=== PATIENT | female | born 1965 | race Caucasian/White ===

== ENCOUNTER 2017-12-25 20:01 | Emergency (ER) | payer MEDICARE ==
[~2017-12-25] VITALS: Ht 165.1 cm; Wt 90.7 kg
[~2017-12-25 20:01] MED LIST: COPAXONE20 MG/SYR PO; EC-NAPROSYN500 M1 PO; FLEXERIL PO; IBUPROFEN 200200 M1 PO; LASIX 20 MG TAB20 MG PO; MEDROLDOSEPACK PO; NEURONTIN300 MG PO; PRILOSEC 20 MG20 MG PO; TRAZODONE HCL100 MG PO; TYLENOL P.M. E1 EAC3 PO; TYLENOL PM EX-1 EACH PO; VALIUM5 MG PO; VITAMIN D400 UNI1 PO; ZOLOFT 50 MG TA50 M1 PO
[2017-12-25] MEDS ORDERED: LISINOPRIL10 MG PO (20:27)
[2017-12-25] MEDS ORDERED: IBU800 MG PO (22:02)
[2017-12-25 22:11] VITALS: BP 154/81
== END 2017-12-25 22:12 | disposition home or self-care (01) ==
LOC: M.ERS 20:01
DX: S62.101A Fracture of unspecified carpal bone, right wrist, initial encounter for closed fracture (principal); G35 Multiple sclerosis; F17.200 Nicotine dependence, unspecified, uncomplicated; Z88.5 Allergy status to narcotic agent; W01.0XXA Fall on same level from slipping, tripping and stumbling without subsequent striking against object, initial encounter; Y93.89 Activity, other specified; Y92.89 Other specified places as the place of occurrence of the external cause; Y99.8 Other external cause status

== ENCOUNTER → 2018-03-15 | Outpatient (CLI) | payer MEDICARE ==
[~2018-03-15] MED LIST changes: +IBU800 MG PO; +LISINOPRIL10 MG PO; +PROAIR HFA8.5 GM INH; +PROMETHAZINE V473 ML PO; +TESSALON PERLE100 MG PO
== END ==
LOC: M.RAD 11:05
DX: J34.89 Other specified disorders of nose and nasal sinuses (principal); F10.99 Alcohol use, unspecified with unspecified alcohol-induced disorder

== ENCOUNTER → 2018-03-30 | Outpatient (CLI) | payer MEDICARE | LOC: M.RAD 09:42 | DX: Z12.31 Encounter for screening mammogram for malignant neoplasm of breast (principal); J34.89 Other specified disorders of nose and nasal sinuses; R05 Cough; G35 Multiple sclerosis; F10.99 Alcohol use, unspecified with unspecified alcohol-induced disorder ==

== ENCOUNTER 2018-06-28 13:41 | Emergency (ER) | payer MEDICARE ==
[~2018-06-28] VITALS: Ht 157.5 cm; Wt 90.7 kg
[~2018-06-28 13:41] MED LIST changes: -PROAIR HFA8.5 GM INH; -PROMETHAZINE V473 ML PO; -TESSALON PERLE100 MG PO
[2018-06-28 14:37] LABS: ABSOLUTE BASOPHILS 0.1 thou/uL (0.0-0.2); ABSOLUTE EOSINOPHILS 0.1 thou/uL (0.0-0.7); ABSOLUTE LYMPHOCYTES 1.7 thou/uL (0.8-5.3); ABSOLUTE MONOCYTES 0.5 thou/uL (0.0-1.2); ABSOLUTE NEUTROPHILS 2.8 thou/uL (1.6-8.1); BASOPHILS 1.4 %; EOSINOPHILS 2.3 %; HEMATOCRIT 38.9 % (37.0-47.0); HEMOGLOBIN 12.8 gm/dL (12.0-15.0); LYMPHOCYTES 33.4 %; MCH 30.6 pg (26.0-34.0); MCHC 32.8 g/dL (28.0-37.0); MCV 93.2 fL (80.0-100.0); MONOCYTES 9.9 %; MPV 8.3 fl. (7.2-11.1); NUCLEATED RBCS 0 /100WBC; PLATELET COUNT* 253 thou/uL (150-400); RBC 4.17 mil/uL (4.20-5.00); RDW-CV 17.1 % (10.5-14.5); WBC 5.2 thou/uL (4.0-11.0)
[2018-06-28 14:52] LABS: ANION GAP 11 mmol/L (7-16); BUN 7 mg/dL (7-18); CALCIUM 9.2 mg/dL (8.5-10.1); CHLORIDE 101 mmol/L (98-107); CO2 24 mmol/L (21-32); CREATININE 0.8 mg/dL (0.6-1.3); GLUCOSE 150 mg/dL (70-99); POTASSIUM 3.9 mmol/L (3.5-5.1); SODIUM 136 mmol/L (136-145)
[2018-06-28 14:59] LABS: ALBUMIN 3.3 g/dL (3.4-5.0); ALKALINE PHOSPHATASE 94 U/L (46-116); SGOT 43 U/L (15-37); SGPT 45 U/L (30-65); TOTAL BILIRUBIN 0.2 mg/dL (<0.1-1.0); TOTAL PROTEIN 7.2 g/dL (6.4-8.2); TROPONIN-I LEVEL <0.06 ng/mL (<0.06)
[2018-06-28 15:15] LABS: URINE BILIRUBIN NEGATIVE (Negative); URINE BLOOD NEGATIVE (Negative); URINE CLARITY CLEAR; URINE COLOR YELLOW; URINE GLUCOSE-RANDOM NEGATIVE (Negative); URINE KETONES NEGATIVE (Negative); URINE LEUKOCYTES-REFLEX NEGATIVE (Negative); URINE NITRITE-REFLEX NEGATIVE (Negative); URINE PROTEIN NEGATIVE (Negative); URINE SPECIFIC GRAVITY >= 1.030 (1.005-1.030); URINE UROBILINOGEN 0.2 E.U./dl (0.2-1.0)
[2018-06-28] MEDS ORDERED: PROAIR HFA8.5 GM INH (15:15)
[2018-06-28] MEDS ORDERED: PROMETHAZINE V473 ML PO (15:15)
[2018-06-28] MEDS ORDERED: TESSALON PERLE100 MG PO (15:15)
[2018-06-28 15:22] VITALS: BP 163/85
== END 2018-06-28 15:23 | disposition home or self-care (01) ==
LOC: M.ERS 13:41
PROVIDERS: Physician Assistant
DX: J18.9 Pneumonia, unspecified organism (principal); G35 Multiple sclerosis; Z90.711 Acquired absence of uterus with remaining cervical stump; Z88.6 Allergy status to analgesic agent

== ENCOUNTER 2019-06-16 02:53 | Inpatient (IN) | payer MEDICARE ==
[~2019-06-16] VITALS: Ht 162.6 cm; Wt 93.0 kg
[~2019-06-16 02:53] MED LIST changes: +ASPIRIN325 PO; +GABAPENTIN 100100 MG PO; +GLATIRAMER20 MG/1 ML SUBQ; +LISINOPRIL20 MG PO; +PROAIR HFA8.5 GM INH; +PROMETHAZINE V473 ML PO; +TESSALON PERLE100 MG PO; +TRAZODONE 150150 M1 PO
[2019-06-16 02:59] VITALS: BP 148/67
[2019-06-16 04:04] LABS: ABSOLUTE EOSINOPHILS 0.2 thou/uL (0.0-0.7); ABSOLUTE LYMPHOCYTES 2.6 thou/uL (0.8-5.3); ABSOLUTE MONOCYTES 0.8 thou/uL (0.0-1.2); ABSOLUTE NEUTROPHILS 2.3 thou/uL (1.6-8.1); BASOPHILS 0.3 %; HEMATOCRIT 37.5 % (37.0-47.0); HEMOGLOBIN 12.2 gm/dL (12.0-15.0); LYMPHOCYTES 43.3 %; MCH 27.3 pg (26.0-34.0); MCHC 32.6 g/dL (28.0-37.0); MCV 83.8 fL (80.0-100.0); MONOCYTES 13.6 %; MPV 8.6 fl. (7.2-11.1); NUCLEATED RBCS 0 /100WBC; PLATELET COUNT* 173 thou/uL (150-400); POLYS 38.8 %; RBC 4.48 mil/uL (4.20-5.00); RDW-CV 16.6 % (10.5-14.5)
[2019-06-16 04:13] LABS: CALCIUM 9.5 mg/dL (8.5-10.1); CREATININE 0.6 mg/dL (0.6-1.3); POTASSIUM 4.1 mmol/L (3.5-5.1)
[2019-06-16 04:17] LABS: ALBUMIN 3.3 g/dL (3.4-5.0); MAGNESIUM 1.9 mg/dL (1.8-2.4); TOTAL BILIRUBIN 0.1 mg/dL (<0.1-1.0); TOTAL PROTEIN 7.6 g/dL (6.4-8.2)
[2019-06-16 05:19] VITALS: BP 117/69
[2019-06-16 05:30] VITALS: BP 116/64
--- NOTE | 2019-06-16 05:30 | NUR ---
PT ADMITTED TO FLOOR PER CART ACCOMPANIED BY ER STAFF WITH BELONGINGS. ORIENTED TO ROOM AND CALL LITE. HISTORY OBTAINED AND ASSESMENT PERFORMED, SEE ADMIT NOTES. PT WEAK, UP WITH 2 ASSIST, GB FROM CART TO BSC TO VOID-URINE SAMPLE SENT TO LAB. ASSISTED TO BED AND POSITIONED FOR COMFORT. AOX4, CALM COOPERATIVE. PT DENIES PAIN AT PRESENT, REQUESTING SNACK AND WOULD LIKE TO SLEEP. NO WOUNDS NOTED. VSS, ROOM AIR SAT 96%. SNACK GIVEN, CALL LITE IN EASY REACH, BED ALARM ON FOR SAFETY. WILL CONTINUE TO MONITOR AND PROVIDE CARES NEEDED.
[2019-06-16 06:17] LABS: URINE BILIRUBIN NEGATIVE (Negative); URINE BLOOD NEGATIVE (Negative); URINE CLARITY CLEAR; URINE COLOR YELLOW; URINE GLUCOSE-RANDOM NEGATIVE (Negative); URINE KETONES NEGATIVE (Negative); URINE LEUKOCYTES-REFLEX NEGATIVE (Negative); URINE NITRITE-REFLEX NEGATIVE (Negative); URINE PROTEIN NEGATIVE (Negative); URINE SPECIFIC GRAVITY <= 1.005 (1.005-1.030); URINE UROBILINOGEN 0.2 E.U./dl (0.2-1.0)
[2019-06-16 06:25] LABS: AMP/METHAMP Negative (Negative); BARBITURATES Negative (Negative); BENZODIAZEPINES POSITIVE (Negative); COCAINE Negative (Negative); METHADONE Negative (Negative); OPIATES Negative (Negative); PCP Negative (Negative); THC Negative (Negative)
[2019-06-16 08:40] VITALS: BP 137/64
[2019-06-16 15:30] VITALS: BP 151/72
[2019-06-16 20:30] VITALS: BP 159/81
--- NOTE | 2019-06-16 20:38 | NUR ---
PATIENT REMAINED ALERT AND ORIENTED THROUGHOUT SHIFT. PATIENT ASSISTED TO BEDSIDE COMMODE. PATIENT DECLINED GAIT BELT. EDUCATION PROVIDED MULTIPLES TIMES THROUGHOUT SHIFT ON FALL PRECAUTIONS. ALL OTHER SAFETY MEASURES MAINTAINED. PATIENT REQUESTED TRAZADONE FOR SLEEP. DR. MELCHOR NOTIFIED. NEW ORDER RECEIVED AND VERIFIED WITH READ BACK.
[2019-06-16] MEDS ORDERED: OMEPRAZOLE40 MG PO (20:57)
--- NOTE | 2019-06-17 05:16 | NUR ---
PATIENT SLEPT VERY LITTLE THIS SHIFT EVEN AFTER TRAZADONE WAS GIVEN FOR SLEEP. NEW IV WAS STARTED CHARTED AND REMAINS SALINE LOCKED. PATIENT HAS BEEN IMPULSIVE AND RESTLESS MOST OF THE NIGHT. TYLENOL AND TRAMADOL WERE GIVEN FOR PAIN NEEDED. WILL CONTINUE TO MONITOR.
--- NOTE | 2019-06-17 10:26 | NUR ---
SW met with pt to complete initial assessment, introduce self, and SW role. Pt alert, oriented. Pt was not pleasant in meeting with SW, pt said "I don't need anything...so you can be along your merry way...." Pt lives at home, presumably independent and has a significant other listed as Jose Campos. Pt refused to discuss any possible needs any further and again attested that she did not need SW/CM services or anything.
[2019-06-17 10:30] VITALS: BP 138/81
[2019-06-17 16:00] VITALS: BP 148/85
[2019-06-17 19:30] VITALS: BP 145/75
--- NOTE | 2019-06-17 20:07 | NUR ---
Patient remained alert and oriented throughout shift. Patient declined gait belt and walker. Bed alarm on while patient in bed. Patient ambulating with stand by assistance. Education provided throughout day on safety measures and fall precautions. Patient declined IV this morning after IV infiltrated. Patient decided to have IV placed this afternoon. IV placed by [facility] in infusion. Dr. Fuchs notified. Patient declined MRI. Dr. Peters notified.
--- NOTE | 2019-06-17 22:45 | NUR ---
THIS NURSE SPOKE WITH PT; PT ANXIOUS, PACING DUNCAN, ESCLATING; PT STATING " NO ONE WILL BELIEVE ME"; TEARFUL, WALKING DOWN THE DUNCAN STATING "I'M LEAVING", ATTEMPTED TO REDIRECT PT; PT PLACED HANDS ON SECURITY; PT PARANOID, DELUSIONSAL, REFUSING TO ANSWER QUESTIONS; "YOU DON'T BELIEVE ME"; ATTEMPTED TO CONTACT NO ANSWER; PT HYSTERCIAL SAYING HE'S ; CONTACTED [facility] FOR WELLNESS CHECK; ABLE TO CONTACT NEXT OF KIN SON JACKIE MCFADDEN; SON VERIFIED CONCERNS FOR HIS MOTHER'S WELLBEING AND DO NOT LEFT HER GO; REPORTED THAT SHE HAS A HX OF ETOH AND DETOX; SON REPORTED ON HIS WAY TO THE HOSPITAL PT TRANSFERING TO TELE PER JUAN LUIS CAIN
[2019-06-17 23:30] VITALS: BP 135/67
--- NOTE | 2019-06-17 23:35 | NUR ---
AT 0 PT ASK TO USE NURSE CELL PHONE CALL S/O INFORMED PT THAT WE COULD CALL IN THE ROOM THE PHONE, EYELET CUTTER CALLED MARKETING ASSISTANT [employer] DIVISION TO CALL S/O WHICH IS AREA CODE 573 , NO ANSWER, PT THEN BACAME AGITATED AND DEMANDED TO USE STAFF PERSONAL PHONE , PT THEN ALSO GOT OUT OF BED AND STARTED WALKING HALLWAYS AND ENDED UP IN PHYSICAL THERPAY ROOM AND REFUSED TO LEAVE. EYELET CUTTER THEN PLACED CALL TO NURSING DRAWING SUPERVISOR AND SECURITY , TO ASISST PT BACK TO ROOM .PT REQUESTED IV TO BE TAKEN OUT AND STATED THAT SHE WAS GOING TO LEAVE HOSPITAL.CALLED PLACED TO DR Ashleigh VALDES WHO IS OPTION TRADER FOR DUTCH, INFORM DOCTOR OF SITUATION. PT VERY IRRATIONAL AND EMOTIIONAL AT THIS POINT AND IS UNSAFE TO LEAVE HOSPTIAL AMA. NURSING DRAWING SUPERVISOR CONTACTED SON JACKIE THAT CAME TO HOSPITAL AND STATES PT HAVE LONG HISTORY OF ETOH ABUSED AND THIS HER BEHAVIOR WHEN SHE IS GOING THROUGH WITHDRAWAL. DOCTOR CALLED BACKED AND I INFORMED HER , CIWA PROTOCOL STARTED AFTER ONE TIME DOSE OF IM ATIVAN GIVEN THEN PT TRANSFERRED TO TELEM VIA BED.
[2019-06-18 04:04] VITALS: BP 151/72
--- NOTE | 2019-06-18 05:59 | NUR ---
REPORT RECIEVED FROM VINAY MOTTA. PT TRANSFERED TO ROOM 228 VIA BED. PT DISORIENTED TO SITUATION. PT SPEAKING IN A BELGIAN, SOUTHERN, SERBIAN, AND MALTESE ACCENT, GETTING UPSET WITH STAFF AT TIMES WHEN THEY WERE NOT SPEAKING IN THE SAME ACCENT. NEW IV STARTED. NO REPORTS OF PAIN. PT VERY UNSTEADY, NEEDING ASSIST OF 2 WHEN AMBULATING. SITTER REMAINED IN ROOM. CIWA COMPLETED. TELE MONITOR IN PLACE. FALL PRECAUTIONS IN PLACE. WILL CONTINUE WITH PLAN OF CARE.
[2019-06-18 12:49] VITALS: BP 160/71
[2019-06-18 16:55] VITALS: BP 176/65
--- NOTE | 2019-06-18 17:56 | NUR ---
PATINET RESTING IN BED. 1:[address] VSS STABLE AND PATINET IN NO APPARENT DISTRESS. PATIENT HAS LARGGE AND FREQUENT MOOD SWINGS. HOURLY ROUNIDNG COMPLETED FOR PATIENT SAFETY.
[2019-06-18 20:15] VITALS: BP 152/78
[2019-06-19] VITALS: BP 159/69
[2019-06-19 04:00] VITALS: BP 131/60; BP 132/59
[2019-06-19 04:32] LABS: HEMATOCRIT 28.7 % (37.0-47.0); HEMOGLOBIN 9.6 gm/dL (12.0-15.0); MCH 27.3 pg (26.0-34.0); MCHC 33.7 g/dL (28.0-37.0); MCV 81.2 fL (80.0-100.0); MPV 8.1 fl. (7.2-11.1); RBC 3.53 mil/uL (4.20-5.00); RDW-CV 16.2 % (10.5-14.5); WBC 5.9 thou/uL (4.0-11.0)
[2019-06-19 04:58] LABS: ALBUMIN 2.8 g/dL (3.4-5.0); CALCIUM 8.8 mg/dL (8.5-10.1); CREATININE 0.7 mg/dL (0.6-1.3); MAGNESIUM 1.8 mg/dL (1.8-2.4); POTASSIUM 3.9 mmol/L (3.5-5.1); TOTAL BILIRUBIN 0.2 mg/dL (<0.1-1.0); TOTAL PROTEIN 6.2 g/dL (6.4-8.2)
--- NOTE | 2019-06-19 05:47 | NUR ---
PT SLEPT MOST OF SHIFT. ASSESSMENT DOUCMENTED. MEDS GIVEN PER E-MAR. IV PATENT, FLUIDS INFUSING. PAIN MEDS GIVEN PER E-MAR. PTS MOOD CHANGES FREQUENTLY. SITTER REMAINED AT BEDSIDE. SON ASKED TO HAVE DR. DENISE CALL AND TALK WITH HIM WHEN SHE ROUNDS TODAY. WILL CONTINUE WITH PLAN OF CARE.
[2019-06-19] MEDS ORDERED: LEVAQUIN 500 M500 M3 PO (10:31)
[2019-06-19 11:46] VITALS: BP 150/73
[2019-06-19 13:29] VITALS: BP 150/73
--- NOTE | 2019-06-19 15:52 | NUR ---
ORDER RECEIVED TO DISCHARGE PATIENT HOME TO SELF CARE. MED REC, MEDICATION EDUCATION, STROKE EDUCATION, NEED FOR FOLLOW UP APPOINTMNET WITH DR AKINS, AND NEED FOR VOLUNTARY ADMISSION TO A REHAB FACILITY COVERED WITH PATIENT AND SHE ACKNOWLEDGED THESE INSTRUCTION. SHE WAS GIVEN ADEQUATE TIME TO HAVE ANY AND ALL QUESTIONS ANSWERED. IV AND TELEMETRY PACK REMOVED. HER SIGNIFICANT OTHER ARRIVED TO TRANSPORT HER HOME AND SECURITY RETURNED HER BELONGINGS. DC TIME OF 15:35. HOURLY ROUNDING COMPLETED FOR PATIENT SAFETY
[2019-06-19] MEDS ORDERED: TRAZODONE 150150 M1 PO (22:15)
[2019-06-19] MEDS ORDERED: NEURONTIN 300M300 M2 PO (22:16)
[2019-06-21] MEDS ORDERED: TAPAZOLE10 MG PO (21:44)
[2019-06-28] MEDS ORDERED: NEURONTIN 300300 M1 PO (12:44)
[2019-06-28] MEDS ORDERED: TRAZODONE 150150 M1 PO (12:45)
[2019-06-28] MEDS ORDERED: ZOLOFT100 MG PO (12:45)
[2019-06-28] MEDS ORDERED: VITAMIN D5000 UNIT PO (12:47)
[2019-06-28] MEDS ORDERED: FOLIC ACID1 MG PO (12:47)
== END 2019-06-19 16:10 | disposition home or self-care (01) | DRG 58 ==
LOC: M.ERS 02:53 → M.3W 04:56 → M.TBA-ER 04:56 → M.3W 05:18 → M.2W 06-18 00:25
PROVIDERS: Internal Medicine; Personal Emergency Response Attendant; ADMIT Internal Medicine
DX: G35 Multiple sclerosis (principal); J15.6 Pneumonia due to other Gram-negative bacteria; J98.11 Atelectasis; E44.1 Mild protein-calorie malnutrition; F17.210 Nicotine dependence, cigarettes, uncomplicated; J06.9 Acute upper respiratory infection, unspecified; D64.9 Anemia, unspecified; I10 Essential (primary) hypertension; E66.01 Morbid (severe) obesity due to excess calories; F10.10 Alcohol abuse, uncomplicated; Z88.5 Allergy status to narcotic agent; Z79.82 Long term (current) use of aspirin; Z79.899 Other long term (current) drug therapy; Z82.49 Family history of ischemic heart disease and other diseases of the circulatory system; Z68.35 Body mass index [BMI] 35.0-35.9, adult

== ENCOUNTER 2019-06-19 21:58 | Emergency (ER) | payer MEDICARE ==
[~2019-06-19] VITALS: Ht 162.6 cm; Wt 93.0 kg
[~2019-06-19 21:58] MED LIST changes: +LEVAQUIN 500 M500 M3 PO; +OMEPRAZOLE40 MG PO
[2019-06-19] MEDS ORDERED: TRAZODONE 150150 M1 PO (22:15)
[2019-06-19] MEDS ORDERED: NEURONTIN 300M300 M2 PO (22:16)
[2019-06-19 22:25] LABS: HEMATOCRIT 37.2 % (37.0-47.0); HEMOGLOBIN 12.3 gm/dL (12.0-15.0); MCH 27.2 pg (26.0-34.0); MCV 82.7 fL (80.0-100.0); MPV 8.2 fl. (7.2-11.1); RBC 4.5 mil/uL (4.20-5.00); RDW-CV 16.4 % (10.5-14.5); WBC 8.3 thou/uL (4.0-11.0)
[2019-06-19 22:38] LABS: URINE BILIRUBIN NEGATIVE (Negative); URINE BLOOD NEGATIVE (Negative); URINE CLARITY CLEAR; URINE COLOR YELLOW; URINE GLUCOSE-RANDOM NEGATIVE (Negative); URINE KETONES NEGATIVE (Negative); URINE LEUKOCYTES NEGATIVE (Negative); URINE NITRITE NEGATIVE (Negative); URINE PROTEIN NEGATIVE (Negative); URINE SPECIFIC GRAVITY 1.015 (1.005-1.030); URINE UROBILINOGEN 0.2 E.U./dl (0.2-1.0)
[2019-06-19 22:42] LABS: CALCIUM 9.9 mg/dL (8.5-10.1); CREATININE 0.7 mg/dL (0.6-1.3); POTASSIUM 4.3 mmol/L (3.5-5.1)
[2019-06-19 22:47] LABS: ALBUMIN 3.5 g/dL (3.4-5.0); TOTAL BILIRUBIN 0.3 mg/dL (<0.1-1.0); TOTAL PROTEIN 7.7 g/dL (6.4-8.2)
[2019-06-19 22:49] LABS: ALCOHOL < 10 mg/dL (<10); SALICYLATE < 2.8 mg/dL (2.8-20.0)
[2019-06-19 22:53] LABS: ACETAMINOPHEN < 2 ug/mL (10-30)
[2019-06-19 22:56] LABS: AMP/METHAMP Negative (Negative); BARBITURATES Negative (Negative); BENZODIAZEPINES Negative (Negative); COCAINE Negative (Negative); METHADONE Negative (Negative); OPIATES Negative (Negative); PCP Negative (Negative); THC Negative (Negative)
[2019-06-20 14:15] VITALS: BP 166/80
--- NOTE | 2019-06-20 15:14 | EKG ---
[place] [address] ELECTROCARDIOGRAM REPORT Name: [id number] Admission: 06/19/19 Attend Phys: Discharge: 06/20/19 Date of : 61 Report #: [id number] THIS REPORT FOR: //name// [facility] ED Test Date: 2019-06-19 Test Time: 22:07:58 Pat Name: [facility] Department: Room: Gender: F Golf Starter And Ranger: MARIA G : 1965 Requested By: Ella Mcclure Order Number: [id number] MD: Gilmar Alfred Measurements Intervals [place] Rate: 96 P: 59 RI: 149 QRS: 38 QRSD: 103 T: 46 QT: 361 QTc: 457 Interpretive Statements Sinus rhythm Abnormal R-wave progression, early transition artifact noted Electronically Signed On 06-20-2019 15:13:56 PHOTOGRAPHER'S MODEL by Gilmar Alfred [email or web address] <ELECTRONICALLY SIGNED> By: Gilmar Alfred MD, [facility] 06/20/19 1513 [id number] 06 Gilmar Alfred MD, FACC /EPI
[2019-06-21] MEDS ORDERED: TAPAZOLE10 MG PO (21:44)
[2019-06-28] MEDS ORDERED: NEURONTIN 300300 M1 PO (12:44)
[2019-06-28] MEDS ORDERED: TRAZODONE 150150 M1 PO (12:45)
[2019-06-28] MEDS ORDERED: ZOLOFT100 MG PO (12:45)
[2019-06-28] MEDS ORDERED: VITAMIN D5000 UNIT PO (12:47)
[2019-06-28] MEDS ORDERED: FOLIC ACID1 MG PO (12:47)
== END 2019-06-20 14:15 ==
LOC: M.ERS 21:58
PROVIDERS: Personal Emergency Response Attendant
DX: F23 Brief psychotic disorder (principal); R45.851 Suicidal ideations; G35 Multiple sclerosis; F17.210 Nicotine dependence, cigarettes, uncomplicated; Z90.710 Acquired absence of both cervix and uterus; Z98.890 Other specified postprocedural states; Z88.5 Allergy status to narcotic agent

== ENCOUNTER 2019-10-23 16:16 | Inpatient (IN) | payer MEDICARE ==
[~2019-10-23] VITALS: Ht 162.6 cm; Wt 101.2 kg
[~2019-10-23 16:16] MED LIST changes: +FOLIC ACID1 MG PO; +NEURONTIN 300300 M1 PO; +NEURONTIN 300M300 M2 PO; +TAPAZOLE10 MG PO; +VITAMIN D5000 UNIT PO; +ZOLOFT100 MG PO
[2019-10-23 16:23] VITALS: BP 144/70
[2019-10-23 16:59] LABS: ABSOLUTE BASOPHILS 0.1 thou/uL (0.0-0.2); ABSOLUTE EOSINOPHILS 0.1 thou/uL (0.0-0.7); ABSOLUTE LYMPHOCYTES 1.9 thou/uL (0.8-5.3); ABSOLUTE MONOCYTES 0.4 thou/uL (0.0-1.2); ABSOLUTE NEUTROPHILS 3.3 thou/uL (1.6-8.1); BASOPHILS 1.6 %; EOSINOPHILS 1.8 %; HEMATOCRIT 37.6 % (37.0-47.0); HEMOGLOBIN 12.9 gm/dL (12.0-15.0); LYMPHOCYTES 33.5 %; MCH 31.8 pg (26.0-34.0); MCHC 34.4 g/dL (28.0-37.0); MCV 92.5 fL (80.0-100.0); MONOCYTES 6.4 %; MPV 7.3 fl. (7.2-11.1); NUCLEATED RBCS 0 /100WBC; PLATELET COUNT* 178 thou/uL (150-400); POLYS 56.7 %; RBC 4.07 mil/uL (4.20-5.00); WBC 5.8 thou/uL (4.0-11.0)
[2019-10-23 17:09] LABS: INR 1.1; PROTIME 11.3 Seconds (9.20-11.50)
[2019-10-23 17:15] LABS: CALCIUM 8.4 mg/dL (8.5-10.1); POTASSIUM 4.2 mmol/L (3.5-5.1)
[2019-10-23 17:20] LABS: ACETAMINOPHEN < 2 ug/mL (10-30); ALCOHOL < 10 mg/dL (<10); SALICYLATE 5.6 mg/dL (2.8-20.0)
[2019-10-23 17:26] LABS: ALBUMIN 3.9 g/dL (3.4-5.0); TOTAL BILIRUBIN 0.5 mg/dL (<0.1-1.0); TOTAL PROTEIN 7.6 g/dL (6.4-8.2)
[2019-10-23 17:27] LABS: URINE BILIRUBIN NEGATIVE (Negative); URINE BLOOD NEGATIVE (Negative); URINE CLARITY CLEAR; URINE COLOR YELLOW; URINE GLUCOSE-RANDOM NEGATIVE (Negative); URINE KETONES NEGATIVE (Negative); URINE LEUKOCYTES-REFLEX NEGATIVE (Negative); URINE NITRITE-REFLEX NEGATIVE (Negative); URINE PROTEIN NEGATIVE (Negative); URINE UROBILINOGEN 0.2 E.U./dl (0.2-1.0)
[2019-10-23 17:35] LABS: AMP/METHAMP Negative (Negative); BARBITURATES Negative (Negative); BENZODIAZEPINES Negative (Negative); COCAINE Negative (Negative); METHADONE Negative (Negative); OPIATES Negative (Negative); PCP Negative (Negative); THC Negative (Negative)
[2019-10-23 20:10] VITALS: BP 116/65
[2019-10-23 20:15] VITALS: BP 109/66
[2019-10-24] VITALS: BP 118/61
[2019-10-24 04:00] VITALS: BP 122/68
[2019-10-24 08:00] VITALS: BP 146/80
--- NOTE | 2019-10-24 08:36 | NUR ---
REPORT RECIEVED FROM ER. PT ORIENTED TO ROOM, CALL LIGHT SHOWN, FALL AGREEMENT WENT OVER, PT STATED UNDERSTANDING. ADMISSION DOCUMENTED. MEDS GIVEN PER E-MAR. IV PATENT, FLUIDS INFUSING. PT REPORTS PAIN BUT DOES NOT REQUEST PAIN MEDICATIONS. WILL CONTINUE WITH PLAN OF CARE.
--- NOTE | 2019-10-24 09:12 | EKG ---
[place] [address] ELECTROCARDIOGRAM REPORT Name: [facility] Room: [address] ADM IN M.R.#: [id number] Admission: 10/23/19 Attend Phys: Karol Hayes, Discharge: Date of : 61 Date of Service: 10/23/19 1645 Report #: [id number] THIS REPORT FOR: //name// [facility] ED Test Date: 2019-10-23 Test Time: 16:45:36 Pat Name: [facility] Department: Room: [facility] Gender: F Jackscrew Man: USMAN : 1965 Requested By: Marvin Feng Order Number: [id number] MD: Gilmar Alfred Measurements Intervals [place] Rate: 66 P: 133 WI: 131 QRS: 133 QRSD: 100 T: 77 QT: 422 QTc: 443 Interpretive Statements Right and left arm electrode reversal, interpretation assumes no reversal Sinus rhythm Right axis deviation Low voltage, precordial leads Nonspecific T abnormalities, anterior leads Baseline wander in lead(s) V1 Compared to ECG 06/19/2019 22:07:58 Right-axis deviation now present Low QRS voltage now present T-wave abnormality now present Electronically Signed On 10-24-2019 9:10:53 CDT by Gilmar Alfred [email or web address] <ELECTRONICALLY SIGNED> By: Gilmar Alfred MD, [facility] 10/24/19 0910 1645 Gilmar Alfred MD, [facility] /EPI
[2019-10-24 11:31] LABS: ABSOLUTE EOSINOPHILS 0.1 thou/uL (0.0-0.7); ABSOLUTE LYMPHOCYTES 1.9 thou/uL (0.8-5.3); ABSOLUTE MONOCYTES 0.4 thou/uL (0.0-1.2); ABSOLUTE NEUTROPHILS 3.8 thou/uL (1.6-8.1); BASOPHILS 0.7 %; EOSINOPHILS 2.3 %; HEMATOCRIT 32.1 % (37.0-47.0); LYMPHOCYTES 30.7 %; MCH 32.2 pg (26.0-34.0); MCHC 34.1 g/dL (28.0-37.0); MCV 94.3 fL (80.0-100.0); MONOCYTES 6.2 %; NUCLEATED RBCS 0 /100WBC; PLATELET COUNT* 141 thou/uL (150-400); POLYS 60.1 %; RDW-CV 20.9 % (10.5-14.5); WBC 6.3 thou/uL (4.0-11.0)
[2019-10-24 12:08] VITALS: BP 118/70
--- NOTE | 2019-10-24 15:21 | NUR ---
ASSUMED CARE OF PT AT 0730. PT RESTING IN BED. A&0X4, COMPLAINED OF PAIN TO BILATERAL LE'S-TREATED WITH PRN TRAMADOL WITH PARTIAL RELIEF. TRACING SR ON THE INCOME TAX RETURN PREPARER. ON RA SAT UPPER 90'S. PT DENIES ANY SHORTNESS OF BREATH. PT UP WITH 1 ASSIST TO BATHROOM. CIWA CHARTED. NEURO CONSULT IN PLACE. PER DR MAURICE- ORDER MRI IF PT WILLING. PT AGREEABLE TO MRI IF ABLE TO BE PRE MEDICATED PRIOR. DR BELTRAN NOTIFIED. ORDERS RECEIVED. REFER TO EMAR. PT GOAL FOR TODAY IS WORK WITH PT AND OT, INCREASE ACTIVITY, MAINTAIN CIWA BELOW 5 AND COMPLIANCE WITH NURSING AND PHYSICIAN CARE. AM ASSESSMENT CHARTED. MEDICATIONS PER OCT. PT REPOSITIONS SELF. HOURLY ROUNDING OBSERVED. BED IN LOW POSITION. CALL LIGHT WITHIN REACH. WILL CONTINUE PLAN OF CARE.
--- NOTE | 2019-10-24 16:19 | NUR ---
Pt is A&O. Resides at home with her sig other. Independent. No DME. No hx of HH or SNF. Pt admits to drinking too much, she understands that she needs to stop, but has no plans of doing so right now. CM offered community resources, Pt declined. Goal is home at [place]. Following.
[2019-10-24 17:06] VITALS: BP 129/70
--- NOTE | 2019-10-24 18:35 | NUR ---
NO ACUTE CHANGES THROUGHOUT SHIFT. REFER TO CHARTING. PT PRE MEDICATED PRIOR TO MRI- 10MG PO VALIUM GIVEN. PT CURRENTLY DOWN IN MRI AT THIS TIME. PT STATES SHE HAS HAD INTERMITTENT DIZZINESS THROUGHOUT DAY. FLUIDS CHANGED TO D5NS. DENIES ANY PAIN OR SHORTNESS OF BREATH THIS AFTERNOON. CONTINUES TO TRACE SR ON THE ASSESSMENT RN. MEDICATIONS PER OCT. PT REPOSITIONS SELF. HOURLY ROUNDING OBSERVED. BED IN LOW POSITION. CALL LIGHT WITHIN REACH. WILL CONTINUE PLAN OF CARE.
[2019-10-24 20:00] VITALS: BP 125/65
[2019-10-25] VITALS (7 sets, daily range): BP systolic 124–144; BP diastolic 51–77
[2019-10-26 04:00] VITALS: BP 157/76
[2019-10-26 04:42] LABS: CALCIUM 8.1 mg/dL (8.5-10.1); CREATININE 0.7 mg/dL (0.6-1.3); MAGNESIUM 1.7 mg/dL (1.8-2.4); PHOSPHORUS* 3.2 mg/dL (2.5-4.9); POTASSIUM 3.6 mmol/L (3.5-5.1)
--- NOTE | 2019-10-26 07:52 | NUR ---
Shift uneventful. Pt is aox4, running NSR on telemetry, respirations are even and unlabored on room air. Pt is medically stable at this time.
[2019-10-26 08:00] VITALS: BP 105/81
[2019-10-26 13:03] VITALS: BP 156/77
--- NOTE | 2019-10-26 19:00 | NUR ---
ASSUMED PT CARE AT 0730. ASSESSMENT COMPLETED CHARTED. ABLE TO MAKE NEEDS KNOWN. UP WITH SBA DUE TO RECENT FALL. C/O HEADACHE AND GOT WORSE LATER IN SHIFT. GAVE PRN PAIN MEDICATION PER EMAR. RESTING IN BED AT THIS TIME AND HEADACHE IS "GONE". WILL CONTINUE TO MONITOR.
[2019-10-26 20:00] VITALS: BP 132/66
[2019-10-27 00:08] VITALS: BP 123/61
[2019-10-27 04:04] VITALS: BP 119/59
--- NOTE | 2019-10-27 06:48 | NUR ---
Shift uneventful. Pt is aox4, running NSR on telemetry, respirations are even and unlabored on room air. Pt is medically stable at this time.
[2019-10-27 12:05] VITALS: BP 130/82
--- NOTE | 2019-10-27 16:30 | NUR ---
ASSUMED PT CARE AT 0730. ASSESSMENT COMPLETED CHARTED. ABLE TO MAKE NEEDS KNOWN. UP WITH SBA. NO C/O PAIN OR DISCOMFORT. RESTING IN BED MOST OF THE DAY. IV FLUIDS RUNNING PER EMAR. WILL CONTINUE TO MONITOR.
--- NOTE | 2019-10-27 16:48 | IN ---
[facility] [address] [place] [address] INTERIM NOTE Name: [facility] Room: [address] ADM IN M.R.#: [id number] Admission: 10/23/19 Attend Phys: Karol Hayes MD Discharge: Date of : 61 Report #: [id number] THIS REPORT FOR: //name// cc: Gilmar Blackburn MD, David L. MD ~ CC: Gilmar Hayes DATE OF SERVICE: 10/26/2019 HISTORY OF PRESENT ILLNESS: This is a 54-year-old female patient who is unable to provide any reliable history. I discussed this patient with Dr. Fuchs, the hospitalist, who is seeing this patient. I reviewed this patient's records. Although she indicates she got steroids only 4 time her whole life. The documentation in the chart indicates that she has demanded steroids in the past. She has seen multiple physicians and multiple neurologists over a period of time. Her MRI has not shown an active lesion for some time. She takes a lot of alcohol every day. She stopped drinking alcohol and she is having difficulty with ambulation. She was seen by Dr. Monson, the last time and she wanted steroids and he did not give her. REVIEW OF SYSTEMS: Positive for history of MS. She also has some problem with memory. She usually follows up with [facility]. She indicated she sees a neurologist, Dr. Gregory there. She had a history of suicidal ideation and psychosis. She had some difficulty with ambulation, which is improving. She had some altered mental status, which is better. She has a history of hypertension. This was a relevant 14-point review of system. PAST MEDICAL HISTORY: Positive for MS. I tried to ask her how that MS has affected and what kind of symptoms she has caused and she did not give. Cardiorespiratory examination is unremarkable. Blood pressure is 156/77, respirations 20, pulse 78, temperature is 98.1. White count of 6.3. GFR is 87. IMPRESSION AND PLAN: This patient has a history of heavy alcoholism. She has no evidence of any active MS. I will not recommend doing any steroids in this patient. She has demanded steroids in the past, but I do not think she should be doing that. We will do the physical therapy in this patient and she will follow up with her neurologist. She needs time, which she is already getting. Thank you very much for this referral. About 50 [place] [address] INTERIM NOTE Name: [facility] Room: [address] IN ..#: [id number] Admission: 10/23/19 Attend Phys: Karol Hayes MD Discharge: Date of : 61 Report #: [id number] taking care of this patient and majority of that was spent counseling and coordinating. <ELECTRONICALLY SIGNED> By: Melvin Galeano MD 10/27/19 1648 1406 [id number] Galeano MD /nt
[2019-10-27 18:02] VITALS: BP 145/86
[2019-10-27 20:00] VITALS: BP 152/78
--- NOTE | 2019-10-27 20:00 | NUR ---
RECEIVED REPORT AND ASSUMED CARE OF PT, ASSESSMENT COMPLETED. PT PLEASANT AND VERY TALKATIVE. DISCUSSED REHAB AND THERAPY. TELEMETRY ON SHOWING SR. WILL CONT TO MONITOR AND ASSIST NEEDED.
[2019-10-28] VITALS: BP 145/61
[2019-10-28 04:00] VITALS: BP 130/44
--- NOTE | 2019-10-28 06:00 | NUR ---
SLEPT WELL TONIGHT. NO COMPLAINTS VOICED. ASSESSMENT UNCHANGED. TELEMETRY SHOWING SR. HS GOALS OF REST AND SAFETY ACHIEVED. HOURLY ROUNDING OBSERVED.
[2019-10-28 08:20] VITALS: BP 151/89
[2019-10-28 12:18] VITALS: BP 150/81
[2019-10-28 16:15] VITALS: BP 158/77
--- NOTE | 2019-10-28 18:24 | NUR ---
ASSUSMED CARE OF PT APPROX 0730. REASSESMENT COMPLETED CHARTED. MEDICATIONS GIVEN CHARTED. PT CARE DISCUSSED WITH PHYSICAN AND THERAPY. SAFTEY PRECAUTIONS UTILIZED. HOURLY ROUNDING. PT IN BED AND CALL LIGHT WITHIN REACH. PT CALLS FOR NEEDS. UP TO BATHROOM WITH STAND BY ASSIST.
[2019-10-29] VITALS: BP 158/77
[2019-10-29 04:00] VITALS: BP 144/64
[2019-10-29 08:00] VITALS: BP 147/66
[2019-10-29 12:00] VITALS: BP 140/73
[2019-10-29 16:00] VITALS: BP 148/69
[2019-10-29 20:00] VITALS: BP 152/55
--- NOTE | 2019-10-29 20:00 | NUR ---
RECEIVED REPORT FROM RAQUEL MOTTA. ASSUMED CARE OF PT AROUND 0730. PT A&O X4. VITALS AND AM ASSESSMENT COMPELTED CHARTED. MEDS PER EMAR. PT TOLERATING DIET. VOIDING WELL. BM TODAY. WAITING FOR REHAB EVALUATION. NO COMPLAINTS OR CONCERNS THIS SHIFT. DID SIGN A FORM FOR RELEASE OF HER MEDICAL RECORDS - WANTS COPIES OF HER LABS. CONTINUING WITH PLAN OF CARE. PT CURRENTLY WATCHING TV IN BED. CALL LIGHT IS WITHIN REACH. HOURLY ROUNDING PERFORMED. FALL PRECAUTIONS IN PLACE.
[2019-10-30 04:00] VITALS: BP 132/46
[2019-10-30 04:32] LABS: HEMATOCRIT 26.9 % (37.0-47.0); HEMOGLOBIN 9.1 gm/dL (12.0-15.0); MCH 32.1 pg (26.0-34.0); MCHC 33.9 g/dL (28.0-37.0); MCV 94.6 fL (80.0-100.0); RBC 2.85 mil/uL (4.20-5.00); RDW-CV 20.5 % (10.5-14.5); WBC 5.7 thou/uL (4.0-11.0)
[2019-10-30 05:00] LABS: ALBUMIN 3.1 g/dL (3.4-5.0); CALCIUM 8.3 mg/dL (8.5-10.1); CREATININE 0.7 mg/dL (0.6-1.3); MAGNESIUM 2.2 mg/dL (1.8-2.4); POTASSIUM 3.8 mmol/L (3.5-5.1); TOTAL BILIRUBIN 0.6 mg/dL (<0.1-1.0); TOTAL PROTEIN 6.8 g/dL (6.4-8.2)
--- NOTE | 2019-10-30 06:56 | NUR ---
PT C/O HEADACHE LAST NIGHT. PRN PAIN MEDICATION EFFECTIVE. PT REPORTED "THAT WAS THE BEST SLEEP SHIRAZ HAD SINCE I GOT HERE." CALL LIGHT IN REACH. HOURLY ROUNDING FOR SAFETY.
[2019-10-30 08:00] VITALS: BP 153/78
[2019-10-30 12:00] VITALS: BP 154/74
[2019-10-30 16:00] VITALS: BP 151/74
--- NOTE | 2019-10-30 16:15 | NUR ---
ASSUMED PT CARE REPORT RECEIVED FROM NURSE PT IS AOX4 ON RA. DENIES PAIN . NO COMPLAINT. PT STATES THAT SHE GETS COPAXONE INJECTION AT HOME AND THAT WILL BRING IT HERE. THIS NURSE MADE DR AWARE. DR AGREES WITH PATIENT TO GET THE INJECTION SHE USUALLY TAKES IT AT HOME. VSS. PT WALKS WITH PHYSICAL THERAPY HELP. CALL LIGHT AT REACH. SAFETY IN PLACE. WILL CONTINUE TO MONITOR PT.
[2019-10-30 19:30] VITALS: BP 148/68
[2019-10-31] VITALS: BP 145/67
--- NOTE | 2019-10-31 03:53 | NUR ---
ASSUMED CARE OF PT 10/30/19 AT APPROX 1930. PT A&OX4, ON ROOM AIR, VSS, PT UP WITH SB ASSIST, CARDIAC RHYTHM SINUS RHYTHM. ASSESSMENTS AND HOURLY ROUNDINGS COMPLETED. WILL CONTINUE TO MONITOR.
[2019-10-31 04:14] VITALS: BP 121/43
[2019-10-31 04:43] LABS: HEMATOCRIT 27.4 % (37.0-47.0); HEMOGLOBIN 9.1 gm/dL (12.0-15.0); MCH 31.8 pg (26.0-34.0); MCHC 33.3 g/dL (28.0-37.0); MCV 95.6 fL (80.0-100.0); MPV 7.7 fl. (7.2-11.1); RBC 2.87 mil/uL (4.20-5.00); RDW-CV 19.9 % (10.5-14.5); WBC 5.6 thou/uL (4.0-11.0)
[2019-10-31 05:06] LABS: ALBUMIN 3.2 g/dL (3.4-5.0); CALCIUM 8.7 mg/dL (8.5-10.1); CREATININE 0.8 mg/dL (0.6-1.3); MAGNESIUM 2.2 mg/dL (1.8-2.4); POTASSIUM 4.1 mmol/L (3.5-5.1); TOTAL BILIRUBIN 0.5 mg/dL (<0.1-1.0); TOTAL PROTEIN 6.8 g/dL (6.4-8.2)
[2019-10-31 08:00] VITALS: BP 139/60
[2019-10-31] MEDS ORDERED: VITAMIN D325 MCG PO (09:30)
--- NOTE | 2019-10-31 11:06 | NUR ---
Spoke with Dr Hayes, plan dc home with HH, Pt to [facility] for acute rehab. Dr Self to speak with Pt and update on POC of dc to home with HH. CM to contact Pt post that discussion to discuss HH option. Following.
[2019-10-31 12:25] VITALS: BP 139/60
[2019-10-31 13:26] VITALS: BP 137/74
[2019-10-31 15:26] VITALS: BP 139/60
--- NOTE | 2019-10-31 17:01 | NUR ---
RECEIVED REPORT FROM KAVIN RN. ASSUMED CARE OF PT AROUND 0730. PT A&O X4. AM ASSESSMENT AND VITALS COMPLETED CHARTED. DRILLER PORTABLE IN PLACE TRACING SR. MEDS PER EMAR. REHAB EVALUATED PT AND DEEMED HER TOO ADVANCED FOR THEIR THERAPY - ORDERS RECEIVED TO DC PT TO HOME WITH HOME MANDY. DISCHARGE ORDERS COMPLETED CHARTED. DISCHARGE SUMMARY AND CARE NOTES GONE OVER WITH PT, PT COMMUNICATES UNDERSTANDING. IV AND DRILLER PORTABLE REMOVED. PT AWARE TO HUMAN DEVELOPMENT PROFESSOR SCRIPT FROM PHARMACY. ALL BELONGINGS GATHERED AND SENT HOME WITH PT. PT LEFT UNIT IN WHEELCHAIR WITH NURSING STAFF. PT LEFT HOSPITAL IN CAR WITH FAMILY.
== END 2019-10-31 16:20 | disposition home health service (06) | DRG 60 ==
LOC: M.ERS 16:16 → M.TBA-ER 18:08 → M.2W 18:08
PROVIDERS: Emergency Medicine; Internal Medicine; ADMIT Internal Medicine
DX: G35 Multiple sclerosis (principal); E05.90 Thyrotoxicosis, unspecified without thyrotoxic crisis or storm; F10.20 Alcohol dependence, uncomplicated; Y90.9 Presence of alcohol in blood, level not specified; F32.9 Major depressive disorder, single episode, unspecified; I10 Essential (primary) hypertension; T38.2X5A Adverse effect of antithyroid drugs, initial encounter; E55.9 Vitamin D deficiency, unspecified; Z79.899 Other long term (current) drug therapy; Z79.82 Long term (current) use of aspirin; E03.9 Hypothyroidism, unspecified; Z88.5 Allergy status to narcotic agent; F12.90 Cannabis use, unspecified, uncomplicated; F17.210 Nicotine dependence, cigarettes, uncomplicated; D64.9 Anemia, unspecified; Z87.01 Personal history of pneumonia (recurrent)

== ENCOUNTER 2019-12-14 14:47 | Emergency (ER) | payer MEDICARE ==
[~2019-12-14] VITALS: Ht 160 cm; Wt 86.2 kg
[~2019-12-14 14:47] MED LIST changes: +VITAMIN D325 MCG PO
[2019-12-14] MEDS ORDERED: NORCO 5-325 TA1 EAC1 PO (16:06)
[2019-12-14 16:31] VITALS: BP 116/53
== END 2019-12-14 16:32 | disposition home or self-care (01) ==
LOC: M.ERS 14:47
DX: S90.32XA Contusion of left foot, initial encounter (principal); I10 Essential (primary) hypertension; Z87.891 Personal history of nicotine dependence; Z88.6 Allergy status to analgesic agent; W01.0XXA Fall on same level from slipping, tripping and stumbling without subsequent striking against object, initial encounter; Y93.89 Activity, other specified; Y92.89 Other specified places as the place of occurrence of the external cause; Y99.8 Other external cause status

== ENCOUNTER 2019-12-21 18:18 | Emergency (ER) | payer MEDICARE ==
[~2019-12-21] VITALS: Ht 162.6 cm; Wt 90.7 kg
[~2019-12-21 18:18] MED LIST changes: +NORCO 5-325 TA1 EAC1 PO
[2019-12-21] MEDS ORDERED: NORCO 5-325 TA1 EAC1 PO ×2 (20:00→20:26)
[2019-12-21] MEDS ORDERED: DOXYCYCLINE 10100 MG PO (20:00)
[2019-12-21 20:57] VITALS: BP 133/78
== END 2019-12-21 21:53 | disposition home or self-care (01) ==
LOC: M.ERS 18:18
DX: S92.515A Nondisplaced fracture of proximal phalanx of left lesser toe(s), initial encounter for closed fracture (principal); S91.115A Laceration without foreign body of left lesser toe(s) without damage to nail, initial encounter; L03.116 Cellulitis of left lower limb; I10 Essential (primary) hypertension; Z87.891 Personal history of nicotine dependence; Z88.6 Allergy status to analgesic agent; W10.8XXA Fall (on) (from) other stairs and steps, initial encounter; Y93.89 Activity, other specified; Y92.89 Other specified places as the place of occurrence of the external cause; Y99.8 Other external cause status

== ENCOUNTER 2020-01-03 18:07 | Emergency (ER) | payer MEDICARE ==
[~2020-01-03] VITALS: Ht 162.6 cm; Wt 90.7 kg
[~2020-01-03 18:07] MED LIST changes: +DOXYCYCLINE 10100 MG PO
[2020-01-03] MEDS ORDERED: KEFLEX500 M2 PO (21:24)
[2020-01-03 21:37] VITALS: BP 106/54
== END 2020-01-03 21:39 | disposition home or self-care (01) ==
LOC: M.ERS 18:07
DX: S92.512A Displaced fracture of proximal phalanx of left lesser toe(s), initial encounter for closed fracture (principal); S91.115A Laceration without foreign body of left lesser toe(s) without damage to nail, initial encounter; I10 Essential (primary) hypertension; Z87.01 Personal history of pneumonia (recurrent); Z88.5 Allergy status to narcotic agent; Z87.891 Personal history of nicotine dependence; W01.0XXA Fall on same level from slipping, tripping and stumbling without subsequent striking against object, initial encounter; Y93.89 Activity, other specified; Y92.89 Other specified places as the place of occurrence of the external cause; Y99.8 Other external cause status

== ENCOUNTER 2020-01-30 19:49 | Emergency (ER) | payer MEDICARE ==
[~2020-01-30] VITALS: Ht 165.1 cm; Wt 87.1 kg
[~2020-01-30 19:49] MED LIST changes: +KEFLEX500 M2 PO
[2020-01-30 20:15] LABS: URINE BILIRUBIN NEGATIVE (Negative); URINE BLOOD NEGATIVE (Negative); URINE CLARITY CLEAR; URINE COLOR YELLOW; URINE GLUCOSE-RANDOM NEGATIVE (Negative); URINE KETONES NEGATIVE (Negative); URINE LEUKOCYTES-REFLEX NEGATIVE (Negative); URINE NITRITE-REFLEX NEGATIVE (Negative); URINE PROTEIN NEGATIVE (Negative); URINE SPECIFIC GRAVITY 1.015 (1.005-1.030); URINE UROBILINOGEN 0.2 E.U./dl (0.2-1.0)
[2020-01-30 20:57] LABS: ABSOLUTE BASOPHILS 0.1 thou/uL (0.0-0.2); ABSOLUTE EOSINOPHILS 0.1 thou/uL (0.0-0.7); ABSOLUTE LYMPHOCYTES 2.3 thou/uL (0.8-5.3); ABSOLUTE MONOCYTES 0.8 thou/uL (0.0-1.2); ABSOLUTE NEUTROPHILS 6.1 thou/uL (1.6-8.1); BASOPHILS 0.9 %; EOSINOPHILS 0.6 %; HEMATOCRIT 40.5 % (37.0-47.0); HEMOGLOBIN 13.4 gm/dL (12.0-15.0); LYMPHOCYTES 24.3 %; MCH 30.7 pg (26.0-34.0); MCV 92.9 fL (80.0-100.0); MONOCYTES 8.8 %; MPV 8.6 fl. (7.2-11.1); NUCLEATED RBCS 0 /100WBC; PLATELET COUNT* 224 thou/uL (150-400); POLYS 65.4 %; RBC 4.36 mil/uL (4.20-5.00); RDW-CV 16.4 % (10.5-14.5); WBC 9.3 thou/uL (4.0-11.0)
[2020-01-30 21:03] LABS: CALCIUM 9.1 mg/dL (8.5-10.1); CREATININE 0.5 mg/dL (0.6-1.3); POTASSIUM 3.1 mmol/L (3.5-5.1)
[2020-01-30 21:08] LABS: ALBUMIN 3.2 g/dL (3.4-5.0); TOTAL BILIRUBIN 0.3 mg/dL (<0.1-1.0)
[2020-01-30 21:21] LABS: AMYLASE 20 U/L (25-115); LIPASE 121 U/L (73-393)
[2020-01-30] MEDS ORDERED: TAPAZOLE10 MG PO (22:26)
[2020-01-30] MEDS ORDERED: HYDROCODON-ACE1 EAC7 PO (22:34)
[2020-01-30] MEDS ORDERED: NAPROSYN500 MG PO (22:34)
[2020-01-30 23:07] VITALS: BP 126/64
== END 2020-01-30 23:11 | disposition home or self-care (01) ==
LOC: M.ERS 19:49
PROVIDERS: Personal Emergency Response Attendant; Physician Assistant
DX: M54.5 Low back pain (principal); E05.90 Thyrotoxicosis, unspecified without thyrotoxic crisis or storm; I10 Essential (primary) hypertension; Z87.891 Personal history of nicotine dependence; Z88.5 Allergy status to narcotic agent; Z79.82 Long term (current) use of aspirin; Z79.899 Other long term (current) drug therapy

== ENCOUNTER 2020-02-07 10:51 | Inpatient (IN) | payer MEDICARE ==
[~2020-02-07] VITALS: Ht 165.1 cm; Wt 83.0 kg
[~2020-02-07 10:51] MED LIST changes: +HYDROCODON-ACE1 EAC7 PO; +NAPROSYN500 MG PO
[2020-02-07 11:00] VITALS: BP 139/52
[2020-02-07] MEDS ORDERED: TAPAZOLE10 MG PO (11:04)
[2020-02-07 11:43] LABS: ABSOLUTE LYMPHOCYTES 0.8 thou/uL (0.8-5.3); ABSOLUTE MONOCYTES 0.6 thou/uL (0.0-1.2); ABSOLUTE NEUTROPHILS 4.7 thou/uL (1.6-8.1); BASOPHILS 0.5 %; EOSINOPHILS 0.4 %; HEMATOCRIT 38.2 % (37.0-47.0); HEMOGLOBIN 12.8 gm/dL (12.0-15.0); LYMPHOCYTES 12.9 %; MCH 30.9 pg (26.0-34.0); MCHC 33.5 g/dL (28.0-37.0); MCV 92.2 fL (80.0-100.0); MONOCYTES 9.2 %; MPV 9.5 fl. (7.2-11.1); NUCLEATED RBCS 0 /100WBC; PLATELET COUNT* 205 thou/uL (150-400); RBC 4.15 mil/uL (4.20-5.00); RDW-CV 16.5 % (10.5-14.5); WBC 6.1 thou/uL (4.0-11.0)
[2020-02-07 12:04] LABS: CALCIUM 9.4 mg/dL (8.5-10.1); CREATININE 0.8 mg/dL (0.6-1.3); POTASSIUM 4.1 mmol/L (3.5-5.1)
[2020-02-07 12:09] LABS: ALBUMIN 2.6 g/dL (3.4-5.0); TOTAL BILIRUBIN 0.4 mg/dL (<0.1-1.0); TOTAL PROTEIN 5.6 g/dL (6.4-8.2)
[2020-02-07 13:14] VITALS: BP 135/75
[2020-02-07 13:24] VITALS: BP 103/69
[2020-02-07 18:15] VITALS: BP 95/68
[2020-02-07 18:48] LABS: APTT 24.4 Seconds (25.0-31.3); INR 1.1
[2020-02-07 18:56] LABS: URINE BILIRUBIN NEGATIVE (Negative); URINE BLOOD NEGATIVE (Negative); URINE CLARITY CLEAR; URINE COLOR YELLOW; URINE GLUCOSE-RANDOM NEGATIVE (Negative); URINE KETONES NEGATIVE (Negative); URINE LEUKOCYTES-REFLEX NEGATIVE (Negative); URINE NITRITE-REFLEX NEGATIVE (Negative); URINE PROTEIN NEGATIVE (Negative); URINE UROBILINOGEN 0.2 E.U./dl (0.2-1.0)
[2020-02-07 18:59] LABS: MAGNESIUM 1.8 mg/dL (1.8-2.4); PHOSPHORUS* 2.9 mg/dL (2.5-4.9)
--- NOTE | 2020-02-07 18:59 | NUR ---
RECEIVED REPORT FROM MILADY IN ER. PT ARRIVED TO 3W AROUND 1324. PT A&OX4. PT ORIENTED TO ROOM, BED AND CALL LIGHT. ADMISSION ASSESSMENT, HISTORY AND PHYSICAL COMPLETED CHARTED. IV INTACT. MEDS PER EMAR. SEPSIS ORDERS DISCUSSED WITH DR MELCHOR AT BEDSIDE, ANTIBIOTICS STARTED. TOPICAL PAIN OINTMENT PUT ON BUTTOCKS RASH. PT LATER BECAME HYPOTENSIVE WITH TACHYCARDIA, MINIMAL URINE OUTPUT - MELA WARREN MESSAGE SENT TO [employer]AT [employer]AYER HIMS. DR UJDD RETURNED PAGE AND SEPSIS ORDER SET WAS INITIATED. FLUIDS AT 250ML/HR STARTED. PT TO TRANSFER DOWNSTAIRS TO TELE FLOOR FOR CLOSER MONITORING. WILL CALL REPORT TO THE NOC NURSE. PT CURRENTLY RESTING IN BED. FALL PRECAUTIONS IN PLACE. CALL LIGHT IS WITHIN REACH. HOURLY ROUNDING PERFORMED.
[2020-02-07 20:10] VITALS: BP 117/61
[2020-02-08] VITALS: BP 102/50
[2020-02-08 02:06] LABS: GLYCOHEMOGLOBIN (HGB A1C) 5.4 % (4.8-5.6)
[2020-02-08 05:00] VITALS: BP 115/63
[2020-02-08 05:22] LABS: ABSOLUTE EOSINOPHILS 0.1 thou/uL (0.0-0.7); ABSOLUTE LYMPHOCYTES 2.2 thou/uL (0.8-5.3); ABSOLUTE MONOCYTES 0.6 thou/uL (0.0-1.2); ABSOLUTE NEUTROPHILS 2.1 thou/uL (1.6-8.1); BASOPHILS 0.3 %; EOSINOPHILS 1.6 %; HEMATOCRIT 33.2 % (37.0-47.0); HEMOGLOBIN 11.1 gm/dL (12.0-15.0); LYMPHOCYTES 44.9 %; MCH 30.8 pg (26.0-34.0); MCHC 33.5 g/dL (28.0-37.0); MONOCYTES 11.4 %; NUCLEATED RBCS 0 /100WBC; PLATELET COUNT* 184 thou/uL (150-400); POLYS 41.8 %; RBC 3.61 mil/uL (4.20-5.00); WBC 4.9 thou/uL (4.0-11.0)
[2020-02-08 05:23] LABS: CALCIUM 8.8 mg/dL (8.5-10.1); CREATININE 0.6 mg/dL (0.6-1.3); POTASSIUM 3.6 mmol/L (3.5-5.1)
--- NOTE | 2020-02-08 06:31 | NUR ---
NO ACUTE CHANGES THROUGHOUT SHIFT. ALL ROUNDINGS COMPLETED, ALL NEEDS MET, FULL ASSESSMENT COMPLETED CHARTED.
[2020-02-08 07:20] VITALS: BP 120/74
[2020-02-08 12:20] VITALS: BP 128/71
--- NOTE | 2020-02-08 12:32 | CON ---
[facility] [address] [place] [address] CONSULTATION Name: [facility] Room: [address] ADM IN M.R.#: [id number] Admission: 02/07/20 Attend Phys: Elis Oro Discharge: Date of : 61 Report #: [id number] THIS REPORT FOR: //name// cc: Gilmar Blackburn MD, David L. MD ~ THIS REPORT FOR: //name// CC: Gilmar Blount DATE OF SERVICE: 02/07/2020 INFECTIOUS DISEASE CONSULTATION ATTENDING PHYSICIAN: Alli Blount DO REASON FOR EVALUATION: Inflammatory brace type eruption over the posterior perineal site extending on the medial aspect of the left thigh. HISTORY OF PRESENT ILLNESS: After the patient examined. This is a 55-year-old with known history of multiple sclerosis who is on Copaxone. Generally has been fairly stable from that standpoint and had presented to the Emergency Room with complaints of severely painful rash on her buttocks and the perineal area in the medial aspect of the proximal left thigh. She noted that she had been having intercourse in a field of tall grass. This occurred, I believe last Thursday. She noted immediately had some raised areas, continued to get worse in terms of the pain. She is barely able to tolerate it. It is not clear if she has any fevers or chills. Appetite has been somewhat diminished. No pulmonary or gastrointestinal related complaints. She was given empiric therapy with ceftriaxone. ALLERGIES: MORPHINE DESCRIBED ITCHING. MEDICATIONS: Include ceftriaxone and fentanyl. Current medicines include lisinopril, cholecalciferol, naproxen, gabapentin, trazodone, sertraline, aspirin, Copaxone, omeprazole, methimazole. PAST MEDICAL HISTORY: As described above, multiple sclerosis, hypertension, previous history of cholecystectomy. SOCIAL HISTORY: Smokes cigarettes, half pack a day. Regular ethanol, no illicit drug use. FAMILY HISTORY: Noncontributory. REVIEW OF SYSTEMS: Otherwise, unremarkable 10-point [place] [address] CONSULTATION Name: [facility] Room: [address] IN [facility]#: [id number] Admission: 02/07/20 Attend Phys: Elis Oro Discharge: Date of : 61 Report #: [id number] PHYSICAL EXAMINATION: GENERAL: She is in moderate to marked distress. She is lucid, appears to be somewhat undernourished and mildly chronically ill appearing. VITAL SIGNS: Temperature 97.6, pulse 92, respirations 21, blood pressure is 139/52. SKIN: Warm, dry, no rashes. HEENT: Normocephalic. Extraocular muscles intact. NECK: Supple. LUNGS: Generally clear to auscultation bilaterally. HEART: Regular. Borderline tachycardic. I do not appreciate murmur. ABDOMEN: Soft, nontender. EXTREMITIES: Posterior perineal site and buttocks extending, she has got a widely evidence of raised area that is moderate to markedly inflamed. It is quite tender to palpation. There are very superficial ulcers. : Deferred. RECTAL: Deferred. LABORATORY DATA: Lactic acid 3.2. Electrolytes: Sodium 131, potassium 4.1, chloride 99, bicarbonate is 24, anion gap of 8, BUN and creatinine 8 and 0.8, glucose of 188. LFTs unremarkable. Albumin 2.6, total protein 5.6. Estimated GFR 74. CBC: White count of 6.1, H and H 12.8 and 38.2, platelets of 205. ASSESSMENT: Inflammatory eruption involving a raised area over the posterior aspect of her perineum. It is difficult to ascertain if this is all just mechanical irritation or can include infectious component. It is reasonable to continue empiric therapy. We will utilize ampicillin sulbactam and should give this reasonable coverage, we will monitor expectantly. Continue to almost treat it as if it is like a burn itself, that may be a reasonable approach, certainly offloading tends to help her as well. We will follow. <ELECTRONICALLY SIGNED> By: Zurdo Braswell MD 02/08/20 1232 [id number] Braswell MD /nt
[2020-02-08] MEDS ORDERED: FLEXERIL PO (14:56)
--- NOTE | 2020-02-08 15:05 | NUR ---
Pt is A&O. Known to this CM from previous hospital stay. Pt resides at home with sig other. Independent. Pt has a walker for mobility. Hx of [facility], Pt may need HH at dc. No hx of SNF. If Pt needs HH at dc, fax H&P, facesheet and dc/HH orders to [phone], p:[phone]
[2020-02-08 16:10] VITALS: BP 128/73
[2020-02-08 20:00] VITALS: BP 136/76
[2020-02-09] VITALS (7 sets, daily range): BP systolic 143–169; BP diastolic 73–88
--- NOTE | 2020-02-09 01:45 | NUR ---
PT ALERT ORIENTED. UP AD [place] TO BSC. TELEMETRY SHOWS SR. ON RA. HYDROCODONE AND FENTANYL GIVEN FOR PAIN IN BUTTOCKS. WCTM
--- NOTE | 2020-02-09 11:40 | NUR ---
Nutrition: Pt admitted with cellulitis of [facility]. H/o ETOH. Heart Healthy diet ordered. BG 111, alb 2.6, prealb 12, A1c 5.4%. Consult for wt loss. Pt usually weighs around 200# or so. Has had a gradual loss to today's wt of 183#. Gradual loss is goal. Protein stores are low. RD will order Beneprotein for added protein intake. Recommend MVI home use as well. Consider Mild risk at this time.
--- NOTE | 2020-02-09 16:08 | NUR ---
CM spoke with Pt regarding dispo, Pt continues to plan to dc to home once medically stable and is open to HH. At dc, fax DC/HH orders to [facility] at [phone]
[2020-02-10 04:35] VITALS: BP 168/79
[2020-02-10 07:30] VITALS: BP 161/77
--- NOTE | 2020-02-10 07:55 | NUR ---
ASSUMED PT CARE AT APPROX 1930, PT IS AWAKE AND ORIENTED X4. NIGHT BAKER IN PLACE AND IS TRACING SR. ASSESSMENT DONE AND CHARTED. PAIN ON THE BUTTOCKS AREA PARTIALLY RELIEVED BY PAIN MEDS GIVEN PER MAR. NO ACUTE CHANGES THROUGHOUT THIS SHIFT. CALL LIGHT WITHIN REACH. HOURLY ROUNDING DONE FOR PT SAFETY.
[2020-02-10 11:10] LABS: ABSOLUTE EOSINOPHILS 0.1 thou/uL (0.0-0.7); ABSOLUTE LYMPHOCYTES 1.2 thou/uL (0.8-5.3); ABSOLUTE MONOCYTES 0.6 thou/uL (0.0-1.2); ABSOLUTE NEUTROPHILS 2.2 thou/uL (1.6-8.1); BASOPHILS 0.6 %; HEMATOCRIT 30.7 % (37.0-47.0); HEMOGLOBIN 10.3 gm/dL (12.0-15.0); LYMPHOCYTES 28.9 %; MCH 30.7 pg (26.0-34.0); MCHC 33.7 g/dL (28.0-37.0); MCV 91.1 fL (80.0-100.0); MONOCYTES 13.7 %; MPV 8.7 fl. (7.2-11.1); NUCLEATED RBCS 0 /100WBC; PLATELET COUNT* 158 thou/uL (150-400); POLYS 54.8 %; RBC 3.37 mil/uL (4.20-5.00); RDW-CV 15.6 % (10.5-14.5)
[2020-02-10 11:21] LABS: ALBUMIN 2.3 g/dL (3.4-5.0); CREATININE 0.6 mg/dL (0.6-1.3); POTASSIUM 3.8 mmol/L (3.5-5.1); TOTAL BILIRUBIN 0.1 mg/dL (<0.1-1.0); TOTAL PROTEIN 5.6 g/dL (6.4-8.2)
[2020-02-10 12:00] VITALS: BP 165/89
[2020-02-10 17:00] VITALS: BP 141/84
[2020-02-10 20:00] VITALS: BP 144/72
[2020-02-11] VITALS: BP 132/67
[2020-02-11 04:00] VITALS: BP 133/80
--- NOTE | 2020-02-11 04:42 | NUR ---
ASSUMED PT CARE AT APPROX 1930. PT IS AWAKE AND ORIENTED X4. WASTE HANDLING TECHNICIAN IN PLACE AND IS TRACING SR. WOUND ON THE BUTTOCKS WITH GRANULATION TISSUE NOTED. LIDOCAINE, STEROID CREAM AND BARRIER CREAM APPLIED ORDERED. NO ACUTE CHANGES THIS SHIFT. CALL LIGHT WITHIN REACH. HOURLY ROUNDING DONE FOR PT SAFETY.
[2020-02-11 08:00] VITALS: BP 123/71
[2020-02-11] MEDS ORDERED: DOXYCYCLINE 10100 MG PO (11:10)
[2020-02-11] MEDS ORDERED: PERCOCET PO (11:10)
[2020-02-11] MEDS ORDERED: PHENERGAN 25 MG25 M1 PO (11:10)
[2020-02-11] MEDS ORDERED: AMOX TR-K CLV1 EAC4 PO (11:10)
[2020-02-11] MEDS ORDERED: LIDOCAINE35.44 GM TOP (11:10)
[2020-02-11 12:12] VITALS: BP 145/84
[2020-02-11 16:28] VITALS: BP 125/68
--- NOTE | 2020-02-11 19:00 | NUR ---
ASSUMED PT CARE AT 0730. ASSESSMENT COMPLETED CHARTED. C/O PAIN ON BOTTOM AND LEG AND GAVE PRN PAIN MEDS PER EMAR. RESTING IN BED MOST OF THE DAY. PT WAS GOING TO BE DISCHARGE BUT PT STILL FELT SICK AND CRIED. POSS D/C TOMORROW INSTEAD. WILL CONTINUE TO MONITOR.
[2020-02-11 20:00] VITALS: BP 134/78
[2020-02-12] VITALS: BP 93/52
[2020-02-12 04:00] VITALS: BP 107/56
--- NOTE | 2020-02-12 04:24 | NUR ---
ASSUMED PT CARE AT APPROX 1930. PT IS AWAKE AND ORIENTED X4. LOGGING CREW SUPERVISOR IN PLACE AND IS TRACING SR. NO ACUTE CHNAGES OVERNIGHT. PAIN MEDICATIONS GIVEN PER MAR, WITH PARTIAL RELIEF. WOUND CARE DONE. CALL LIGHT WITHIN REACH. HOURLY ROUNDING DONE FOR PT SAFETY.
[2020-02-12 08:00] VITALS: BP 138/87
--- NOTE | 2020-02-12 16:30 | NUR ---
ASSUMED PT CARE AT 0730. ASSESSMENT COMPLETED CHARTED. ABLE TO MAKE NEEDS KNOWN. UP AD [place] IN ROOM. DISCHARGE APPROVED FOR TODAY. DISCHARGE PAPERWORK WENT OVER WITH PT. IV AND HEART MONITOR REMOVED. WAITED FOR RIDE TO ARRIVE AND TOOK ALL BELONGINGS WITH HER. NO COMMENT QUESTIONS OR COMPLAINTS NOTED.
== END 2020-02-12 15:22 | disposition home health service (06) | DRG 871 ==
LOC: M.ERS 10:51 → M.2W 11:43 → M.TBA-ER 11:43 → M.3W 13:49 → M.2W 20:39
PROVIDERS: Emergency Medicine Emergency Medical Services; Internal Medicine; ADMIT Internal Medicine; ATTEND Internal Medicine
DX: A41.9 Sepsis, unspecified organism (principal); G93.41 Metabolic encephalopathy; J18.9 Pneumonia, unspecified organism; E44.0 Moderate protein-calorie malnutrition; L03.317 Cellulitis of buttock; L03.116 Cellulitis of left lower limb; F10.11 Alcohol abuse, in remission; R73.9 Hyperglycemia, unspecified; I10 Essential (primary) hypertension; G35 Multiple sclerosis; F17.210 Nicotine dependence, cigarettes, uncomplicated; K21.9 Gastro-esophageal reflux disease without esophagitis; E05.90 Thyrotoxicosis, unspecified without thyrotoxic crisis or storm; F12.90 Cannabis use, unspecified, uncomplicated; M54.9 Dorsalgia, unspecified; L30.9 Dermatitis, unspecified; I95.9 Hypotension, unspecified; Z90.49 Acquired absence of other specified parts of digestive tract; Z79.899 Other long term (current) drug therapy; Z87.01 Personal history of pneumonia (recurrent); Z68.30 Body mass index [BMI] 30.0-30.9, adult; Z88.5 Allergy status to narcotic agent

== ENCOUNTER → 2020-02-29 | Outpatient (CLI) | payer MEDICARE ==
[~2020-02-29] MED LIST changes: +AMOX TR-K CLV1 EAC4 PO; +LIDOCAINE35.44 GM TOP; +PERCOCET PO; +PHENERGAN 25 MG25 M1 PO
== END ==
LOC: M.MRI 13:30
PROVIDERS: ATTEND Internal Medicine
DX: M51.35 Other intervertebral disc degeneration, thoracolumbar region (principal); M48.061 Spinal stenosis, lumbar region without neurogenic claudication; M25.78 Osteophyte, vertebrae; M47.817 Spondylosis without myelopathy or radiculopathy, lumbosacral region; G35 Multiple sclerosis; E78.5 Hyperlipidemia, unspecified; M79.7 Fibromyalgia; F32.9 Major depressive disorder, single episode, unspecified; F41.9 Anxiety disorder, unspecified; E05.00 Thyrotoxicosis with diffuse goiter without thyrotoxic crisis or storm

== ENCOUNTER 2020-03-24 15:49 | Inpatient (IN) | payer MEDICARE ==
[~2020-03-24] VITALS: Ht 165.1 cm; Wt 88.9 kg
--- NOTE | ~2020-03-24 | PROC ---
[facility] [address] [place] [address] PROCEDURE REPORT [facility] Room: [address] IN M.R.#: [id number] Admission: 03/24/20 Attend Phys: Karol Hayes MD Discharge: Date of : 61 Report #: [id number] THIS REPORT FOR: //name// cc: Gilmar Blackburn MD, David L. MD ~ THIS REPORT FOR: //name// For GI report, please see the Provation report in Perceptive 7 content. By: 0657Medical Records Staff DAVE /SAY
[2020-03-24 15:52] VITALS: BP 175/87
[2020-03-24 16:30] LABS: ABSOLUTE LYMPHOCYTES 1.7 thou/uL (0.8-5.3); ABSOLUTE MONOCYTES 0.7 thou/uL (0.0-1.2); ABSOLUTE NEUTROPHILS 3.4 thou/uL (1.6-8.1); BASOPHILS 0.8 %; EOSINOPHILS 0.5 %; HEMATOCRIT 38.8 % (37.0-47.0); LYMPHOCYTES 28.4 %; MCH 29.7 pg (26.0-34.0); MCHC 33.6 g/dL (28.0-37.0); MCV 88.5 fL (80.0-100.0); MONOCYTES 11.7 %; MPV 9.1 fl. (7.2-11.1); NUCLEATED RBCS 0 /100WBC; PLATELET COUNT* 190 thou/uL (150-400); POLYS 58.6 %; RBC 4.39 mil/uL (4.20-5.00); WBC 5.9 thou/uL (4.0-11.0)
[2020-03-24 16:37] LABS: CALCIUM 9.1 mg/dL (8.5-10.1); CREATININE 0.7 mg/dL (0.6-1.3); POTASSIUM 3.7 mmol/L (3.5-5.1)
[2020-03-24 16:40] LABS: APTT 21.8 Seconds (25.0-31.3); INR 1.1; PROTIME 11.1 Seconds (9.20-11.50)
[2020-03-24 16:45] LABS: URINE BILIRUBIN NEGATIVE (Negative); URINE BLOOD NEGATIVE (Negative); URINE CLARITY CLEAR; URINE COLOR YELLOW; URINE GLUCOSE-RANDOM NEGATIVE (Negative); URINE KETONES NEGATIVE (Negative); URINE LEUKOCYTES-REFLEX NEGATIVE (Negative); URINE NITRITE-REFLEX NEGATIVE (Negative); URINE PROTEIN NEGATIVE (Negative); URINE SPECIFIC GRAVITY <= 1.005 (1.005-1.030); URINE UROBILINOGEN 0.2 E.U./dl (0.2-1.0)
[2020-03-24 16:54] LABS: ALBUMIN 3.3 g/dL (3.4-5.0); TOTAL BILIRUBIN 0.7 mg/dL (<0.1-1.0); TOTAL PROTEIN 7.2 g/dL (6.4-8.2)
[2020-03-24 18:12] VITALS: BP 182/88
[2020-03-24 20:00] VITALS: BP 172/81
[2020-03-25] VITALS: BP 132/65
[2020-03-25 03:50] VITALS: BP 150/93
[2020-03-25 05:31] LABS: HEMATOCRIT 31.2 % (37.0-47.0); MCH 30.1 pg (26.0-34.0); MCHC 33.8 g/dL (28.0-37.0); MCV 89.2 fL (80.0-100.0); MPV 8.4 fl. (7.2-11.1); RBC 3.49 mil/uL (4.20-5.00); RDW-CV 17.9 % (10.5-14.5); WBC 5.5 thou/uL (4.0-11.0)
[2020-03-25 05:56] LABS: HEMOGLOBIN 10.5 gm/dL (12.0-15.0)
[2020-03-25 06:02] LABS: ALBUMIN 2.5 g/dL (3.4-5.0); CALCIUM 8.3 mg/dL (8.5-10.1); CREATININE 0.6 mg/dL (0.6-1.3); MAGNESIUM 1.9 mg/dL (1.8-2.4); POTASSIUM 3.3 mmol/L (3.5-5.1); TOTAL BILIRUBIN 0.4 mg/dL (<0.1-1.0); TOTAL PROTEIN 5.9 g/dL (6.4-8.2)
[2020-03-25 08:49] VITALS: BP 136/77
--- NOTE | 2020-03-25 11:42 | EKG ---
[place] [address] ELECTROCARDIOGRAM REPORT Name: [facility] Room: [address] ADM IN M.R.#: [id number] Admission: 03/24/20 Attend Phys: Karol Hayes, Discharge: Date of : 61 Date of Service: 03/24/20 1613 Report #: [id number] THIS REPORT FOR: //name// [facility] ED Test Date: 2020-03-24 Test Time: 16:13:58 Pat Name: [facility] Department: Room: [facility] Gender: F Golf Professional: POLLY : 1965 Requested By: Roberto Riggs Order Number: [id number] MD: Jeffery Smith Measurements Intervals [place] Rate: 107 P: 63 [place]: 142 QRS: 47 QRSD: 106 T: 137 QT: 367 QTc: 490 Interpretive Statements Sinus tachycardia Repol abnrm, prob ischemia, anterolateral lds Compared to ECG 10/23/2019 16:45:36 Early repolarization now present Possible ischemia now present Sinus rhythm no longer present Right-axis deviation no longer present T-wave abnormality no longer present Electronically Signed On 03-25-2020 11:42:03 CDT by Jeffery Smith [email or web address] <ELECTRONICALLY SIGNED> By: Kiah Smith MD, [facility] 03/25/20 1142 1613 1613 Kiah Smith MD, [facility] /EPI
[2020-03-25 13:53] VITALS: BP 146/81
[2020-03-25 17:57] VITALS: BP 142/81
[2020-03-25 20:00] VITALS: BP 163/103
[2020-03-26] VITALS (7 sets, daily range): BP systolic 128–157; BP diastolic 60–93
[2020-03-26 07:17] LABS: HEMATOCRIT 30.5 % (37.0-47.0); HEMOGLOBIN 10.1 gm/dL (12.0-15.0); MCH 30.3 pg (26.0-34.0); MCHC 33.3 g/dL (28.0-37.0); MPV 9.5 fl. (7.2-11.1); RBC 3.34 mil/uL (4.20-5.00); RDW-CV 17.9 % (10.5-14.5); WBC 4.9 thou/uL (4.0-11.0)
[2020-03-26 07:37] LABS: ALBUMIN 2.5 g/dL (3.4-5.0); CALCIUM 8.5 mg/dL (8.5-10.1); CREATININE 0.5 mg/dL (0.6-1.3); MAGNESIUM 1.7 mg/dL (1.8-2.4); POTASSIUM 4.7 mmol/L (3.5-5.1); TOTAL BILIRUBIN 0.4 mg/dL (<0.1-1.0); TOTAL PROTEIN 5.7 g/dL (6.4-8.2)
--- NOTE | 2020-03-26 17:24 | 2DMMODE ---
[place] [address] 2 D/M-MODE ECHOCARDIOGRAM Name: [facility] Room: [address] IN [facility].#: [id number] Admission: 03/24/20 Attend Phys: Karol Hayes, Discharge: Date of : 61 Date of Service: 03/26/20 1724 Report #: [id number] THIS REPORT FOR: cc: Gilmar Blackburn MD, David L. MD Holkins,Venkatesh House MD [facility] ~ APPROVED REPORT Study performed: 03/26/2020 13:46:41 EXAM: Comprehensive 2D, Doppler, and color-flow Echocardiogram Patient Location: In-Patient Room #: 231 Status: routine BSA: 1.89 HR: 100 bpm BP: 146/82 mmHg Rhythm: NSR Other Information Study Quality: Good Indications Cardiomegaly 2D Dimensions IVSd: 11.40 (7-11mm) LVOT Diam: 21.28 (18-24mm) LVDd: 48.08 mm PWd: 10.18 (7-11mm) Ascending Ao: 33.23 (22-36mm) LVDs: 37.75 (25-40mm) Aortic Root: 35.13 mm Volumes Left Atrial Volume (Systole) LA ESV Index: 29.80 mL/m2 Aortic Valve AoV Peak Jabier.: 1.23 m/s AO Peak Gr.: 6.04 mmHg LVOT Max P.32 mmHg AO Mean Gr.: 3.31 mmHg LVOT Mean P.98 mmHg LVOT Max V: 1.04 m/s AO V2 VTI: 21.73 cm LVOT Mean V: 0.64 m/s RUCHI (VTI): 3.07 cm2 LVOT V1 VTI: 18.76 [place] [address] 2 D/M-MODE ECHOCARDIOGRAM Name: [facility] Room: [address] IN .R.#: [id number] Admission: 03/24/20 Attend Phys: Karol Hayes, Discharge: Date of : 61 Date of Service: 03/26/20 1724 Report #: [id number] Mitral Valve E/A Ratio: 1.11 MV Decel. Time: 120.17 ms MV E Max Jabier.: 0.87 m/s MV PHT: 34.85 ms MVA (PHT): 6.31 cm2 TDI E/Lateral E': 9.67 E/Medial E': 9.67 Medial E' Jabier.: 0.09 m/s Lateral E' Jabier.: 0.09 m/s Pulmonary Valve PV Peak Jabier.: 0.94 m/s PV Peak Gr.: 3.54 mmHg Left Ventricle The left ventricle is normal size. There is normal LV segmental wall motion. There is normal left ventricular wall thickness. Left ventricular systolic function is normal. The left ventricular ejection fraction is within the normal range. LVEF is 55%. The left ventricular diastolic function is normal. Right Ventricle The right ventricle is normal size. The right ventricular systolic function is normal. Atria The left atrium size is normal. The right atrium size is normal. Aortic Valve The aortic valve is normal in structure. No aortic regurgitation is present. There is no aortic valvular stenosis. Mitral Valve The mitral valve is normal in structure. Trace mitral regurgitation. No evidence of mitral valve stenosis. Tricuspid Valve The tricuspid valve is normal in structure. Trace tricuspid regurgitation. Unable to assess PA pressure. Pulmonic Valve The pulmonary valve is normal in structure. [place] [address] 2 D/M-MODE ECHOCARDIOGRAM Name: [facility] Room: [address] IN [facility].#: [id number] Admission: 03/24/20 Attend Phys: Karol Hayes, Discharge: Date of : 61 Date of Service: 03/26/20 1724 Report #: [id number] Great Vessels The aortic root is normal in size. IVC is normal in size and collapses >50% with inspiration. Pericardium There is no pericardial effusion. <Conclusion> The left ventricle is normal size. There is normal left ventricular wall thickness. Left ventricular systolic function is normal. The left ventricular ejection fraction is within the normal range. LVEF is 55%. The left ventricular diastolic function is normal. The right ventricle is normal size. The left atrium size is normal. The aortic valve is normal in structure. The mitral valve is normal in structure. The tricuspid valve is normal in structure. IVC is normal in size and collapses >50% with inspiration. There is no pericardial effusion. There is normal LV segmental wall motion. <ELECTRONICALLY SIGNED> By: Venkatesh Villegas MD, FACC 03/26/20 [phone] Venkatesh Villegas MD, FACC /INF
[2020-03-27] VITALS (7 sets, daily range): BP systolic 124–183; BP diastolic 72–98
[2020-03-27 07:25] LABS: HEMATOCRIT 33.9 % (37.0-47.0); HEMOGLOBIN 11.2 gm/dL (12.0-15.0); MCH 30.7 pg (26.0-34.0); MCV 92.9 fL (80.0-100.0); MPV 9.3 fl. (7.2-11.1); RBC 3.65 mil/uL (4.20-5.00); RDW-CV 17.5 % (10.5-14.5); WBC 4.7 thou/uL (4.0-11.0)
[2020-03-27 07:35] LABS: ALBUMIN 2.7 g/dL (3.4-5.0); CALCIUM 8.9 mg/dL (8.5-10.1); CREATININE 0.7 mg/dL (0.6-1.3); MAGNESIUM 1.8 mg/dL (1.8-2.4); POTASSIUM 4.4 mmol/L (3.5-5.1); TOTAL BILIRUBIN 0.3 mg/dL (<0.1-1.0); TOTAL PROTEIN 6.3 g/dL (6.4-8.2)
[2020-03-27 14:34] LABS: AMP/METHAMP Negative (Negative); BARBITURATES Negative (Negative); BENZODIAZEPINES Negative (Negative); COCAINE Negative (Negative); METHADONE Negative (Negative); OPIATES Negative (Negative); PCP Negative (Negative); THC Negative (Negative)
[2020-03-28] VITALS (7 sets, daily range): BP systolic 142–184; BP diastolic 68–96
--- NOTE | 2020-03-28 13:08 | PATH ---
[facility] [address] [place] [address] PATHOLOGY RPT PROCEDURE Name: [facility] Room: [address] IN M.R.#: [id number] Admission: 03/24/20 Date of : 61 Discharge: Report #: [id number] Path Case #: [id number] [facility] Accession Number: [id number] . 01 Material submitted: . stomach - GASTRIC BIOPSIES FOR H. PYLORI . 01 Clinical history: . ALCOHOL ABUSE, UNCOMPLICATED DIZZINESS . 02 Diagnosis: Gastric biopsy: - Mild nonspecific chronic gastritis, negative for Helicobacter pylori organisms and dysplasia. (BRYCE:prince; 03/28/2020) . Special stain: H. pylori immuno QMS 03/28/2020 1020 Local . 02 Electronically signed: . Peewee Lucero MD, Pathologist NPI- [id number] . 01 Gross description: . The specimen is received in formalin, labeled "Felicitas Agudelo, gastric biopsy, H. pylori". The specimen is additionally labeled on the requisition as, "gastric biopsies for H. pylori". Received are two segments of pale sheets soft tissue ranging in size from 0.3 to 0.6 cm in maximum dimensions. The specimen is submitted entirely in cassette A1. (CAA; 03/27/2020) QA/[facility] 03/27/2020 1134 Local . 02 Pathologist provided ICD-10: K29.50 . 02 CPT . 405667, R06746 Specimen Comment: A courtesy copy of this report has been sent to [phone] Specimen Comment: [phone], Specimen Comment: Report sent to ,DR DENISE / DR AKINS Performed at: [address] [id number] MD Toño Salcedo MD Phone: [phone] Performed at: [address] [address] PATHOLOGY RPT PROCEDURE Name: [facility] Room: [address] IN M.R.#: [id number] Admission: 03/24/20 Date of : 61 Discharge: Report #: [id number] Path Case #: [id number] [address] [place] [id number] MD Peewee Lucero MD Phone: [phone]
[2020-03-29 03:45] VITALS: BP 141/79
--- NOTE | 2020-03-29 03:46 | CON ---
[address] [address] CONSULTATION Name: [facility] Room: [address] ADM IN M.R.#: [id number] Admission: 03/24/20 Attend Phys: Karol Hayes MD Discharge: Date of : 61 Report #: [id number] THIS REPORT FOR: //name// cc: Gilmar Blackburn MD, David L. MD ~ THIS REPORT FOR: //name// CC: Gilmar Hayes DATE OF SERVICE: 03/27/2020 HISTORY OF PRESENT ILLNESS: This is a 55-year-old female patient who says her vision in the left eye is not good. I asked her whether she saw an remote ruby on rails developer, she said no. She sees her neurologist but then she says she did see the remote ruby on rails developer a few days ago. Then, she added that she has this visual problem in the left eye for a long time and it is because of optic neuritis. She gets recurrent episode of optic neuritis and she got steroids. This has happened for a long time and that is an unusual course for optic neuritis. She goes to her neurologist at [facility]. She is on Copaxone for a long time, she takes it as an injection. REVIEW OF SYSTEMS: Positive for diagnosis of MS. She said her initial presentation was optic neuritis. When I asked her, does she drink alcohol, she says no but when I elaborated, she said she has not drank any alcohol for 3-4 days, but prior to that it looks like she was drinking significant amount of alcohol. She did not quantify for me. She has a prior history of hypertension. I reviewed a large number of records on this patient. She has seen Dr. Nathan, a neurologist, on last admission and she was also seen on other occasions. I looked at the MRI films and she has a T2 hyperintensities and that was done in October. She does have some dizziness, which is subjective complaints. She complained of some toe laceration in the past. She does have a history of anxiety and depression. That is all the 14-point review of system I can get on her. PHYSICAL EXAMINATION: Indicates she is alert. She is responsive. She can follow simple commands. Her speech looks intact. Cranial nerve examination 2-12 looks mostly unremarkable, but I could not look at the fundus even after multiple attempts to see if she has edema or pseudobulbar palsy. Strength is mostly unremarkable when she gives a good effort, otherwise weakness is there on both sides, more on the left than right. It took a long time to appreciate the position sense on the left side and she said it is old. Cardiac examination is unremarkable. No respiratory difficulty was noticed. She is complaining of a lot of GI issue. She had an EGD, which showed esophagitis. She is on vitamin and looks like she is getting steroids. I reviewed the MRI and multiple other testing, [place] [address] CONSULTATION Name: [facility] Room: [address] IN M.R.#: [id number] Admission: 03/24/20 Attend Phys: Karol Hayes MD Discharge: Date of : 61 Report #: [id number] IMPRESSION: This patient does have a history of multiple sclerosis. I am not sure all her symptoms are related to multiple sclerosis and whether she has a relapse again this time. She wants 1600 mg of steroids because she says that is what she gets. Problem is that she has multiple dosages of steroids and ultimately, she will start having side effects from that and that is what she wants although. I am going to get an Ophthalmology consult to ask them to look at her fundus. I will talk to her again tomorrow. With esophagitis and it is not clear if it is a relapse or more of it is anxiety, I will be reluctant to give steroids, but if she insists on it, we may give her that. Thank you very much for this referral and if you have any questions, please feel free to contact me. I spent about 50 minutes of time taking care of this patient today, and majority of that time was spent counseling, coordinating and reviewing her imaging studies as well as her prior records. <ELECTRONICALLY SIGNED> By: Melvin Galeano MD 03/29/20 0346 1250 [id number] Galeano MD /nt
[2020-03-29 11:53] VITALS: BP 167/96
[2020-03-29 17:32] VITALS: BP 156/85
[2020-03-30] VITALS: BP 113/71
[2020-03-30 04:51] LABS: HEMOGLOBIN 11.9 gm/dL (12.0-15.0); MCH 30.5 pg (26.0-34.0); MCHC 33.8 g/dL (28.0-37.0); MCV 90.2 fL (80.0-100.0); MPV 9.1 fl. (7.2-11.1); RBC 3.88 mil/uL (4.20-5.00); RDW-CV 17.4 % (10.5-14.5); WBC 5.7 thou/uL (4.0-11.0)
[2020-03-30 05:05] LABS: CALCIUM 9.6 mg/dL (8.5-10.1); CREATININE 0.6 mg/dL (0.6-1.3); POTASSIUM 4.5 mmol/L (3.5-5.1)
[2020-03-30 07:55] VITALS: BP 128/83
[2020-03-30 12:25] VITALS: BP 140/81
[2020-03-30 18:27] VITALS: BP 151/85
[2020-03-30 20:00] VITALS: BP 138/81
[2020-03-31] VITALS: BP 129/53
[2020-03-31 04:00] VITALS: BP 111/50
[2020-03-31 08:00] VITALS: BP 148/84
[2020-03-31] MEDS ORDERED: PROTONIX40 M1 PO (09:31)
[2020-03-31] MEDS ORDERED: PREDNISONE 20 M20 MG PO (09:31)
[2020-03-31 13:01] VITALS: BP 135/79
[2020-03-31 13:34] VITALS: BP 135/79
== END 2020-03-31 17:30 | DRG 59 ==
LOC: M.ERS 15:49 → M.TBA-ER 17:07 → M.2W 17:07
PROVIDERS: Family Medicine; ADMIT Internal Medicine; ATTEND Internal Medicine
PROC: 0DB68ZX Excision of Stomach, Via Natural or Artificial Opening Endoscopic, Diagnostic (ICD-10-PCS; principal; 2020-03-26)
DX: G35 Multiple sclerosis (principal); E44.1 Mild protein-calorie malnutrition; F10.239 Alcohol dependence with withdrawal, unspecified; F32.9 Major depressive disorder, single episode, unspecified; F41.9 Anxiety disorder, unspecified; R16.0 Hepatomegaly, not elsewhere classified; K21.0 Gastro-esophageal reflux disease with esophagitis; K29.70 Gastritis, unspecified, without bleeding; I11.9 Hypertensive heart disease without heart failure; F19.90 Other psychoactive substance use, unspecified, uncomplicated; R73.9 Hyperglycemia, unspecified; Y90.9 Presence of alcohol in blood, level not specified; Z20.828 Contact with and (suspected) exposure to other viral communicable diseases; Z87.891 Personal history of nicotine dependence; Z88.5 Allergy status to narcotic agent; Z87.01 Personal history of pneumonia (recurrent); Z68.32 Body mass index [BMI] 32.0-32.9, adult; Z90.710 Acquired absence of both cervix and uterus; Z90.49 Acquired absence of other specified parts of digestive tract

== ENCOUNTER → 2020-05-11 | Outpatient (CLI) | payer MEDICARE ==
[~2020-05-11] MED LIST changes: +PREDNISONE 20 M20 MG PO; +PROTONIX40 M1 PO
== END ==
LOC: M.ULTRA 10:14
PROVIDERS: ATTEND Internal Medicine
DX: R93.41 Abnormal radiologic findings on diagnostic imaging of renal pelvis, ureter, or bladder (principal); Z96.0 Presence of urogenital implants

== ENCOUNTER 2021-02-07 18:55 | Emergency (ER) | payer OTHER ==
[~2021-02-07] VITALS: Ht 162.6 cm; Wt 90.7 kg
[2021-02-07] MEDS ORDERED: SYNTHROID75 MC1 PO (19:15)
[2021-02-07] MEDS ORDERED: NORCO5 PO ×2 (20:20→20:24)
[2021-02-07] MEDS ORDERED: CEPHALEXIN500 MG PO (20:20)
[2021-02-07 20:40] VITALS: BP 111/52
== END 2021-02-07 20:40 | disposition home or self-care (01) ==
LOC: M.ERS 18:55
DX: S90.812A Abrasion, left foot, initial encounter (principal); I10 Essential (primary) hypertension; Z87.891 Personal history of nicotine dependence; Z88.5 Allergy status to narcotic agent; Z79.899 Other long term (current) drug therapy; Z90.710 Acquired absence of both cervix and uterus; W22.8XXA Striking against or struck by other objects, initial encounter; Y93.89 Activity, other specified; Y92.89 Other specified places as the place of occurrence of the external cause; Y99.9 Unspecified external cause status

== ENCOUNTER 2021-07-15 15:09 | Emergency (ER) | payer OTHER ==
[~2021-07-15] VITALS: Ht 162.6 cm; Wt 90.7 kg
[~2021-07-15 15:09] MED LIST changes: +CEPHALEXIN500 MG PO; +NORCO5 PO; +SYNTHROID75 MC1 PO
[2021-07-15] MEDS ORDERED: CARVEDILOL12.5 MG PO (15:19)
[2021-07-15] MEDS ORDERED: ABILIFY 2 MG2 M1 PO (15:20)
[2021-07-15] MEDS ORDERED: PERCOCET PO (16:09)
[2021-07-15 16:27] VITALS: BP 142/70
[2021-07-18] MEDS ORDERED: TIROSINT100 MCG PO (10:33)
[2021-07-18] MEDS ORDERED: LISINOPRIL10 MG PO (10:34)
[2021-07-18] MEDS ORDERED: NEURONTIN 300M300 M2 PO (10:35)
[2021-07-18] MEDS ORDERED: LISINOPRIL20 MG PO (10:36)
[2021-07-18] MEDS ORDERED: ZOLOFT100 MG PO (10:39)
== END 2021-07-15 16:28 | disposition home or self-care (01) ==
LOC: M.ERS 15:09
DX: S42.202A Unspecified fracture of upper end of left humerus, initial encounter for closed fracture (principal); I10 Essential (primary) hypertension; F32.9 Major depressive disorder, single episode, unspecified; F41.9 Anxiety disorder, unspecified; Z90.89 Acquired absence of other organs; Z90.49 Acquired absence of other specified parts of digestive tract; Z90.710 Acquired absence of both cervix and uterus; Z79.899 Other long term (current) drug therapy; Z88.5 Allergy status to narcotic agent; Z87.891 Personal history of nicotine dependence; W19.XXXA Unspecified fall, initial encounter; Y93.89 Activity, other specified; Y92.89 Other specified places as the place of occurrence of the external cause; Y99.8 Other external cause status

== ENCOUNTER → 2021-07-23 | Day surgery (SDC) | payer OTHER ==
[~2021-07-23] MED LIST changes: +ABILIFY 2 MG2 M1 PO; +CARVEDILOL12.5 MG PO; +TIROSINT100 MCG PO
[2021-07-23 09:53] LABS: HEMATOCRIT 36.8 % (37.0-47.0); HEMOGLOBIN 12.2 gm/dL (12.0-15.0); MCHC 33.1 g/dL (28.0-37.0); MCV 90.6 fL (80.0-100.0); MPV 7.6 fl. (7.2-11.1); RBC 4.06 mil/uL (4.20-5.00); RDW-CV 19.9 % (10.5-14.5); WBC 7.4 thou/uL (4.0-11.0)
[2021-07-23 10:04] LABS: CALCIUM 8.9 mg/dL (8.5-10.1); CREATININE 0.8 mg/dL (0.6-1.3); POTASSIUM 4.4 mmol/L (3.5-5.1)
--- NOTE | 2021-07-23 11:09 | EKG ---
[place] [address] ELECTROCARDIOGRAM REPORT Name: [facility] Room: [facility]#: [id number] Admission: 07/23/21 Attend Phys: Marvin Morrison, Discharge: Date of : 61 Date of Service: 07/23/21 0951 Report #: [id number] THIS REPORT FOR: //name// [facility] Test Date: 2021-07-23 Test Time: 09:51:34 Pat Name: [facility] Department: Room: Gender: F Middle School Teacher: ANGIE : 1965 Requested By: Tari Wylie Order Number: [id number] Ila MD: Venkatesh Villegas Measurements Intervals [place] Rate: 55 P: 66 [place]: 176 QRS: 24 QRSD: 99 T: 59 QT: 450 QTc: 431 Interpretive Statements Sinus rhythm Low voltage, precordial leads Nonspecific T abnormalities, anterior leads Baseline wander in lead(s) V3 Compared to ECG 03/24/2020 16:13:58 Low QRS voltage now present ST-T changes suggesting ischemia have remitted Electronically Signed On 07-23-2021 11:09:10 NEW [employer]IENT B[employer]ING SERVICES CLERK by Venkatesh Villegas [email or web address] <ELECTRONICALLY SIGNED> By: Venkatesh Villegas MD, FACC 07/23/21 1109 0951 Venkatesh Villegas MD, FACC /EPI
--- NOTE | 2021-07-25 09:56 | OP ---
[address] [address] OPERATIVE REPORT Name: [facility] Room: [facility]..#: [id number] Admission: 07/23/21 Attend Phys: Marvin Morrison II Discharge: Date of : 61 Report #: [id number] THIS REPORT FOR: cc: Ciro Sutton MD, Meng MD Greiner,Marvin Dupont II DO ~ DATE OF SURGERY: 07/23/2021 PREOPERATIVE DIAGNOSIS: Left proximal humerus fracture with displacement and angulation. POSTOPERATIVE DIAGNOSIS: Left proximal humerus fracture with displacement and angulation. PROCEDURE PERFORMED: Left proximal humerus fracture open reduction and internal fixation. SURGEON: Marvin Morrison II, DO SCHOOL PRINCIPAL: GABE Bradford. ANESTHESIA: Per operative record. ESTIMATED BLOOD LOSS: 50 mL. ANTIBIOTICS: Per operative record. DRAINS: None. COMPLICATIONS: None. CONDITION OF THE PATIENT: Stable to recovery room. IMPLANTS USED: Diaz and Nephew proximal humerus plate with appropriate locking and nonlocking screws. DESCRIPTION OF PROCEDURE: The patient was taken to the operative suite, placed supine on the operating table, given appropriate anesthesia. The patient's affected shoulder was sterilely prepped and draped in modified beach chair position and all bony prominences well padded. Surgery began by an anterior deltopectoral incision and was carried down to subcutaneous tissues. The deltoid was retracted laterally with careful avoidance of the cephalic vein. The fracture was then evaluated and shown to be displaced. This was reduced in an open fashion utilizing [place] and bone hook as well as reduction forceps. The plate was then applied in near anatomic fashion, held in place utilizing K-wires and the appropriate locking and nonlocking screws were then placed. Final [address] [address] OPERATIVE REPORT Name: [facility] Room: [facility].#: [id number] Admission: 07/23/21 Attend Phys: Marvin Morrison II Discharge: Date of : 61 Report #: [id number] images were taken with the C-arm with the AP ____ showing no penetration of the cortex with locking screws into the head and appropriate placement of the locking screws distally. The fracture was reduced in anatomic fashion. Wound was then copiously irrigated. The deltopectoral area was closed with #1 Vicryl in running fashion. Skin was closed with 2-0 Vicryl and running 3-0 Monocryl. Dermabond dressing applied. The patient transported to recovery in stable condition. Counts were correct throughout the procedure. <ELECTRONICALLY SIGNED> By: aMrvin Morrison II, DO 07/25/21 0956 2144 [id number] Morrison II, DO /nt
== END | disposition home or self-care (01) ==
LOC: M.SUR 08:48
PROVIDERS: Anesthesiology; ATTEND Orthopaedic Surgery
DX: S42.202A Unspecified fracture of upper end of left humerus, initial encounter for closed fracture (principal); M25.512 Pain in left shoulder; I10 Essential (primary) hypertension; E03.9 Hypothyroidism, unspecified; Z98.890 Other specified postprocedural states; Z79.899 Other long term (current) drug therapy; Z20.822 Contact with and (suspected) exposure to COVID-19; X58.XXXA Exposure to other specified factors, initial encounter; Y93.89 Activity, other specified; Y92.89 Other specified places as the place of occurrence of the external cause; Y99.8 Other external cause status